=== PATIENT | male | born 1980 | race African-American/Black ===

== ENCOUNTER 2016-03-24 10:55 | Day surgery (SDC) | payer OTHER ==
[~2016-03-24] VITALS: Ht 172.7 cm; Wt 85.2 kg
[2016-03-24] VITALS (14 sets, daily range): BP systolic 117–146; BP diastolic 56–80; PULSE 69–90; RESP 15–20; Ht 172.7 cm; Wt 85.2 kg
[~2016-03-24 10:55] MED LIST: BUPIVACAINE 0.25% (MPF) 10 ML 10 ML VIAL INJ ONE; ONDA-43 PO
[2016-03-24] MEDS ORDERED: CEFAZOLIN 2 GM/50 ML (PMX) 50 ML IVPB ONE (11:00)
[2016-03-24] MEDS ORDERED: SOD CHLORIDE 0.9% 1,000 ML IV ONE (11:00)
[2016-03-24] MEDS ORDERED: ROCURONIUM 50 MG INJ ONE (13:45)
[2016-03-24] MEDS ORDERED: NEOSTIGMINE 3 MG/3 ML SYRINGE ONE ×2 (13:45→14:22)
[2016-03-24] MEDS ORDERED: LIDOCAINE 2% (SDV) 5 ML INJ ONE (13:45)
[2016-03-24] MEDS ORDERED: PROPOFOL 20 ML ONE (13:45)
[2016-03-24] MEDS ORDERED: SUCCINYLCHOLINE CHLORIDE 100 MG/5 ML SYG IV ONE (13:45)
[2016-03-24] MEDS ORDERED: GLYCOPYRROLATE 0.4 MG INJ ONE ×2 (13:45→14:22)
[2016-03-24] MEDS ORDERED: MEPERIDINE 100 MG INJ ONE (13:46)
[2016-03-24] MEDS ORDERED: CEFAZOLIN 1 GM INJ ONE (13:49)
[2016-03-24] MEDS ORDERED: ONDANSETRON 4 MG INJ ONE (13:50)
[2016-03-24] MEDS ORDERED: BUPIVACAINE 0.25% (MPF) 10 ML 10 ML VIAL ONE (13:51)
[2016-03-24 13:56] LABS: INR 0.99; PROTIME 13.1 Sec (12.2-14.2)
[2016-03-24 13:57] LABS: PARTIAL THROMBOPLASTIN TIME 32.7 Sec (25.0-35.0)
[2016-03-24] MEDS ORDERED: HYDROCODONE/APAP (5/325) TAB PO ONE (15:00)
[2016-03-24] MEDS: HYDROmorphONE (0.2 MG/ML) 10ML SYG IV PRN ×3 (15:28→15:58)
--- NOTE | 2016-03-24 15:29 | OPR ---
DATE OF OPERATION: 03/24/2016 INDICATION: This is a 35-year-old male with large hemorrhoids. He requests surgical excision. Ris ks, alternatives, benefits, and personnel were discussed with patient. Patient expressed understand ing and consents to the operation. PREOPERATIVE DIAGNOSIS: Hemorrhoids. POSTOPERATIVE DIAGNOSIS: Hemorrhoids. OPERATIONS PERFORMED: 1. Internal and external complex hemorrhoidectomy x2. 2. Rigid proctoscopy. SURGEON: Neville Bowers MD ESTIMATED BLOOD LOSS: 20 mL SPECIMENS: Right anterior and left lateral hemorrhoidal columns. COMPLICATIONS: None. ANESTHESIA: General. PROCEDURE: The patient was taken to the OR, prepped and draped in the usual sterile fashion. Surgi reece timeout was performed. IV antibiotics were given. Rigid proctoscopy was performed. No evidenc e of any masses or lesions. Attention was paid to the left lateral column. A [id number] 3-0 V icryl suture was placed into the left lateral internal hemorrhoidal artery. The internal and electrical cad technician al hemorrhoidal complex was excised with a 15 blade and handheld LigaSure. The right anterior hemor rhoidal complex was addressed in a similar fashion with [id number] 3-0 Vicryl suture into the r ight anterior hemorrhoidal artery. The internal and external hemorrhoid was excised using a 15 blad e and handheld LigaSure. Hemostasis was established. Local anesthesia was injected. Dry dressings were applied. Dictated By: NEVILLE CANTRELL/SIMRAN Conf#: [id number] DID#: [id number]
[2016-03-24] MEDS ORDERED: DIPHENHYDRAMINE 50 MG INJ IV PRN (15:30)
[2016-03-24] MEDS ORDERED: FENTAnyl 50 MCG/ML VIAL IV PRN ×2 (15:30)
[2016-03-24] MEDS ORDERED: EPHEDrine SULFATE 50 MG/5 ML SYG IV PRN (15:30)
[2016-03-24] MEDS ORDERED: MEPERIDINE 25 MG INJ IV PRN (15:30)
[2016-03-24] MEDS ORDERED: HYDROmorphONE (0.2 MG/ML) 10ML SYG IV PRN (15:30)
[2016-03-24] MEDS ORDERED: hydrALAzine 20 MG INJ IV PRN (15:30)
[2016-03-24] MEDS ORDERED: ONDANSETRON 4 MG INJ IV PRN (15:30)
[2016-03-24] MEDS ORDERED: METOCLOPRAMIDE 10 MG INJ IV PRN (15:30)
[2016-03-24] MEDS ORDERED: MIDAZOLAM 1 MG/ML 2 ML INJ IV PRN (15:30)
[2016-03-24] MEDS ORDERED: morphine (1 MG/ML) 10ML SYRINGE IV PRN (15:30)
[2016-03-24] MEDS ORDERED: LABETALOL HCL 20MG INJ IV PRN (15:30)
[2016-03-24] MEDS: morphine (1 MG/ML) 10ML SYRINGE IV PRN ×2 (15:58→16:16)
== END 2016-03-24 18:50 | disposition home or self-care (01) ==
LOC: SDS 10:55
PROVIDERS: ATTEND Surgery
DX: K64.4 Residual hemorrhoidal skin tags (principal); K64.8 Other hemorrhoids
CPT/HCPCS: 46260; 85610; 85730; 88304; J0330; J0690; J1170; J2175; J2270; J2405; J2710; Z7512; Z7610; A4310; J3010

== ENCOUNTER 2016-03-27 16:20 | Inpatient (IN) | payer OTHER ==
[~2016-03-27] VITALS: Ht 172.7 cm; Wt 84.9 kg
[~2016-03-27 16:20] MED LIST changes: -BUPIVACAINE 0.25% (MPF) 10 ML 10 ML VIAL INJ ONE
[2016-03-27] MEDS ORDERED: SOD CHLORIDE 0.9% 1,000 ML IV STA (18:25)
[2016-03-27] MEDS ORDERED: KETOROLAC 15 MG INJ IV STA (18:51)
[2016-03-27] MEDS ORDERED: OXYCODONE/ACETAMINOPHEN (5/325) TAB PO ONE (19:00)
[2016-03-27 19:50] LABS: ADD SCAN DIFF NO
[2016-03-27 19:58] LABS: BASOPHILS % 0.1 % (0.0-2.0); EOSINOPHILS # 0.1 10^3/ul (0.0-0.5); EOSINOPHILS % 0.9 % (0.0-7.0); HEMATOCRIT 45.9 % (42.0-52.0); HEMOGLOBIN 15.5 g/dl (14.0-18.0); LYMPHOCYTES # 1.7 10^3/ul (0.8-2.9); LYMPHOCYTES % 12.4 % (15.0-51.0); MEAN CORPUSCULAR HEMOGLOBIN 24.9 pg (29.0-33.0); MEAN CORPUSCULAR HGB CONC 33.8 g/dl (32.0-37.0); MEAN CORPUSCULAR VOLUME 73.7 fl (82.0-101.0); MEAN PLATELET VOLUME 10.8 fl (7.4-10.4); MONOCYTE # 1.1 10^3/ul (0.3-0.9); MONOCYTES % 8.3 % (0.0-11.0); NEUTROPHIL # 10.5 10^3/ul (1.6-7.5); NEUTROPHILS % 78.1 % (39.0-77.0); PLATELET COUNT 243 10^3/UL (140-415); RED BLOOD COUNT 6.23 10^6/ul (4.70-6.10); RED CELL DISTRIBUTION WIDTH 14.8 % (11.5-14.5); WHITE BLOOD COUNT 13.4 10^3/ul (4.8-10.8)
[2016-03-27] MEDS ORDERED: ACETAMINOPHEN 500 MG TAB PO STA (19:58)
[2016-03-27 20:03] LABS: ALBUMIN 4.7 g/dl (3.3-4.9)
[2016-03-27 20:04] LABS: CHLORIDE 97 mmol/L (97-110); INR 0.96; POTASSIUM 3.8 mmol/L (3.5-5.1); PROTIME 12.8 Sec (12.2-14.2); SODIUM 142 mmol/L (135-144)
[2016-03-27 20:06] LABS: BILIRUBIN,INDIRECT 1.4 mg/dl (0-1.1); BILIRUBIN,TOTAL 1.4 mg/dl (0.2-1.3); CREATININE 1.17 mg/dl (0.61-1.24)
[2016-03-27 20:07] LABS: ALANINE AMINOTRANSFERASE 51 IU/L (13-69); ALKALINE PHOSPHATASE 124 IU/L (42-121); ANION GAP 18 (8-16); ASPARTATE AMINO TRANSFERASE 38 IU/L (15-46); BLOOD UREA NITROGEN 12 mg/dl (7-20); CALCIUM 9.9 mg/dl (8.4-10.2); CARBON DIOXIDE 31 mmol/L (21-31); GLUCOSE 100 mg/dl (70-220); TOTAL PROTEIN 8.3 g/dl (6.1-8.1)
[2016-03-27 20:10] LABS: URINE BILIRUBIN (Dip) 1+ (NEGATIVE); URINE BLOOD (Dip) NEGATIVE (NEGATIVE); URINE COLOR YELLOW (YELLOW); URINE GLUCOSE (Dip) NEGATIVE (NEGATIVE); URINE KETONES (Dip) 40 (NEGATIVE); URINE LEUKOCYTE ESTERASE (Dip) NEGATIVE (NEGATIVE); URINE NITRITE (Dip) NEGATIVE (NEGATIVE); URINE UROBILINOGEN (Dip) 1.0 E.U./dL (0.1-1.0)
[2016-03-27 20:26] LABS: TROPONIN-I < 0.012 ng/ml (0.00-0.12)
[2016-03-27 20:34] LABS: ADD UMIC NO; URINE TOTAL PROTEIN (Dip) NEGATIVE (NEGATIVE)
[2016-03-27 20:35] LABS: ICTOTEST NEGATIVE (NEGATIVE)
[2016-03-27] MEDS ORDERED: HYDROmorphONE 1 MG/ML SYG IV STA (20:35)
--- NOTE | 2016-03-27 20:52 | ERA ---
ER Documentation Chief Complaint Date/Time DATE: 03/27/16 TIME: 20:45 Chief Complaint Complains of no bm S/P HPI 35-year-old man complains of abdominal pain and distention and has had no bowel movements 5 days post hemorrhoidectomy. Patient denies blood per rectum or melena, he has had no fevers or chills, no chest pain or shortness of breath. His surgeon Dr. Bowers recommended admission for disimpaction. Patient denies vomiting, no chest pain or shortness of breath ROS All systems reviewed and are negative except as per history of present illness. Medications Home Meds Discontinued Scripts Ondansetron Hcl* (Zofran*) 4 Mg Tab, 4 MG PO Q6H Y for NAUSEA AND OR VOMITING, # 20 TAB Prov:AISHA SAUL S. 04/05/14 Allergies Allergies: Coded Allergies: No Known Allergy (Unverified , 03/27/16) PMhx/Soc Status post hemorrhoidectomy History of Surgery: Yes Anesthesia Reaction: No Hx Neurological Disorder: No Hx Respiratory Disorders: No Hx Cardiac Disorders: Yes (OPEN HEART SX PREMIE) Hx Psychiatric Problems: No Hx Miscellaneous Medical Probl: No Hx Alcohol Use: No Hx Substance Use: No Hx Tobacco Use: No Smoking Status: Unknown if ever smoked FmHx Family History: No diabetes Physical Exam Vitals Vital Signs Date Time Temp Pulse Resp B/P Pulse Ox O2 Delivery O2 Flow Rate FiO2 03/27/16 16:25 98.8 106 20 138/84 97 Physical Exam GENERAL: Well-developed, well-nourished, well-hydrated, in moderate discomfort. HEENT: Moist mucous membranes, pink conjunctiva, no cervical spine tenderness or step-off deformities, no goiter, no jaundice or icterus, extraocular movements intact without pain. No submandibular induration, and no pharyngeal erythema NEURO: Alert and oriented 3, cranial nerves II through XII intact bilaterally, pupils equal round reactive to light, no focal deficits or facial asymmetry, sensation intact distally Strength 5/5 in upper and lower extremities bilaterally CARDIAC: Regular rate and rhythm, no murmurs rubs or gallops LUNGS: Clear bilaterally no wheezing crackles or stridor ABDOMEN: Soft protuberant abdomen appears distended, no guarding or rigidity, no rebound. SKIN: Warm and dry to touch, no abrasions, contusions, or hematomas, no lacerations, no ecchymosis, no target lesions, and without ulcers EXTREMITIES: No clubbing cyanosis or edema, calves are bilaterally symmetrical, no Homans sign, no popliteal cord sign. Distal pulses equal and bilateral PSYCH: Normal affect without agitation or irritability Result Diagram: 03/27/164 03/27/164 Results 24 hrs Laboratory Tests Test 03/27/16 18:44 03/27/16 19:00 Alanine Aminotransferase (ALT/SGPT) 51IU/L Albumin 4.7g/dl Albumin/Globulin Ratio 1.30 Alkaline Phosphatase 124IU/L Anion Gap 18 Aspartate Amino Transf (AST/SGOT) 38IU/L Basophils # 0.010^3/ul Basophils % 0.1% Blood Urea Nitrogen 12mg/dl Calcium Level 9.9mg/dl Carbon Dioxide Level 31mmol/L Chloride Level 97mmol/L Creatinine 1.17mg/dl Direct Bilirubin 0.00mg/dl Eosinophils # 0.110^3/ul Eosinophils % 0.9% Globulin 3.60g/dl Glucose Level 100mg/dl Hematocrit 45.9% Hemoglobin 15.5g/dl INR International Normalized Ratio 0.96 Indirect Bilirubin 1.4mg/dl Lipase 18U/L Lymphocytes # 1.710^3/ul Lymphocytes % 12.4% Mean Corpuscular Hemoglobin 24.9pg Mean Corpuscular Hemoglobin Concent 33.8g/dl Mean Corpuscular Volume 73.7fl Mean Platelet Volume 10.8fl Monocytes # 1.110^3/ul Monocytes % 8.3% Neutrophils # 10.510^3/ul Neutrophils % 78.1% Nucleated Red Blood Cells # 0.010^3/ul Nucleated Red Blood Cells % 0.0/100WBC Platelet Count 16674^3/UL Potassium Level 3.8mmol/L Prothrombin Time 12.8Sec Prothrombin Time Ratio 1.0 Red Blood Count 6.2310^6/ul Red Cell Distribution Width 14.8% Sodium Level 142mmol/L Total Bilirubin 1.4mg/dl Total Protein 8.3g/dl Troponin I < 0.012ng/ml White Blood Count 13.410^3/ul Urine Bilirubin 1+ Urine Clarity CLEAR Urine Color YELLOW Urine Glucose NEGATIVE% Urine Hemoglobin NEGATIVE Urine Ictotest NEGATIVE Urine Ketones 40 Urine Leukocyte Esterase NEGATIVE Urine Nitrite NEGATIVE Urine Specific C[place]horn >=1.030 Urine Total Protein NEGATIVE Urine Urobilinogen 1.0 E.U./dL Urine pH 5.0 Current Medications Medications (Trade) Dose Ordered Sig/Maria Elena Route PRN Reason Start Time Stop Time Status Last Admin Dose Admin Sodium Chloride (NS) 1,000 ml @ 1,000 mls/hr Q1H STAT IV 03/27/16 18:25 03/27/16 19:24 DC 03/27/16 18:49 Ketorolac Tromethamine (Toradol) 15 mg ONCE STAT IV 03/27/16 18:51 03/27/16 18:53 DC 03/27/16 18:59 Oxycodone/ Acetaminophen (Percocet (5/ 325)) 1 tab ONCE ONCE PO 03/27/16 19:00 03/27/16 19:01 DC 03/27/16 19:00 Acetaminophen (Tylenol Tab) 1,000 mg ONCE STAT PO 03/27/16 19:58 03/27/16 19:59 DC 03/27/16 20:03 Hydromorphone HCl (Dilaudid) 1 mg ONCE STAT IV 03/27/16 20:35 03/27/16 20:36 DC 03/27/16 21:06 Procedures/MDM IV line was established patient was placed on pack master rhythm strip revealed a sinus rhythm at about 80 bpm with upright P and T waves. Patient was afebrile. I administered 1 L normal saline intravenously, and Toradol 15 mg IV for pain control, for continued pain he received acetaminophen 1 g p.o. Patient had continued pain despite medications were administered hydromorphone 1 mg IV. EKG performed, read by me: 80 bpm, normal sinus rhythm, normal axis, no acute ST segment changes, narrow QRS complex, with good R-wave progression in precordial leads. CBC reveals leukocytosis of 13, and electrolytes were unremarkable, liver function tests were normal, troponin was negative, coagulation profile was normal. Urine analysis was negative for infection Patient to be kept n.p.o. at midnight CT scan of the abdomen and pelvis was performed revealing some inflammatory changes in the perineum including subcutaneous air, there is also air-fluid distention in the distal colon and rectum. There is also distal obstruction noted. Please refer to radiologist dictation for full report. I administered Zosyn 3.375 g IV 1. Patient will be admitted to Dr. Chavez, Dr. Bowers was also spoken to. Departure Diagnosis: Primary Impression: Obstipation Additional Impression: Intractable abdominal pain Condition: ASHANTI Elias MD Mar 27, 2016 20:52
--- NOTE | 2016-03-27 22:18 | RADRPT ---
PROCEDURE: CT Abdomen and Pelvis without contrast CLINICAL INDICATION: Possible bowel obstruction TECHNIQUE: Transaxial images were obtained through the abdomen and pelvis on a multi-slice scanner without the intravenous contrast administration. No oral contrast had previously been given. Sagit irasema and coronal re-formations were subsequently reconstructed. One or more of the following dose reduction techniques were used: - Automated exposure control. - Adjustment of the mA and/or kV according to patient size. - Use of iterative reconstruction technique. Radiation dose: CTDIvol = 12.16 mGy; DLP = 673.93 mGy-cm. COMPARISON: Comparison the post contrast CT done 04/01/2014 FINDINGS: Lung bases: The visualized lung bases appear unremarkable. Liver: Normal in size and in attenuation. There is no focal lesion. Gallbladder: Surgical kasey are seen in the gallbladder fossa. Bile ducts: The intrahepatic bile ducts are mildly prominent. The common bile duct is mildly dilate d at 7.4 mm at the head of the pancreas. No choledocholithiasis identified Pancreas: Appears normal with no mass or inflammation evident. Spleen: Normal in size with no focal lesion. Adrenals: Normal with no mass identified. Kidneys, ureters and bladder: The kidneys are normal in size and there is no mass, pathological calc ification, or hydronephrosis evident. There is no perinephric stranding. The ureters are normal in c aliber and no ureteroliths are identified. A Rob catheter is seen within a nondistended bladder. Reproductive organs: The prostate is not enlarged. Stomach and bowel: The stomach appears unremarkable. The proximal small bowel is thin in caliber. There is fluid distension of the ilium and the colon is diffusely dilated with air and fluid with th e lumen measuring up to 6.3 cm in diameter. There appears to be intramural air within the rectum. Appendix: There appears to been a previous appendectomy. Peritoneum: Extraperitoneal interstitial air is seen to the perineum and continues inferiorly into t he scrotum. Inflammation extends to the skin surface but no discrete abscess is evident. Aorta: Normal in caliber with no aneurysmal dilatation. IVC: The inferior vena cava is flattened. This can be seen in hypovolemia. Lymph nodes: No pathologically enlarged nodes are identified. Osseous structures: The osseous elements appear intact. IMPRESSION: 1. Since the previous CT with contrast on 04/01/2014, there has been development of a intramedullar y air within the rectum and extensive extraperitoneal air seen to the perineum with inflammation ext ending to the skin surface. Interstitial air continues inferiorly into the scrotum. 2. There is air and fluid distension of the entire colon as well as the ileum with the more proxima l small bowel small in caliber. A distal obstruction at the anus cannot be excluded. The stomach ruthann ears unremarkable. A clip is seen off the cecum is suggestive of previous appendectomy, unchanged. 3. There is again no evidence of urinary outflow obstruction or ureterolithiasis. A Rob catheter is now seen in a poorly distended bladder. 4. There is been interval cholecystectomy, there is less intrahepatic bile duct dilatation but the common bile duct remains prominent at 7.4 mm to the head of the pancreas. The pancreas appears unre markable. Findings of intramural air within the rectum extending interstitially through the perineum and into the scrotum associated with air and fluid distension of ileum and the entire colon were telephoned b grant Martin MD to Dr. Samano on 03/27/2016 at 2210 hours. Physician Ciara Date Time Electronically viewed and signed by Physician Ciara on 03/27/2016 22:18 /
[2016-03-27] MEDS ORDERED: PIPER-TAZO 3.375 GM IV (PMX) 100 ML IVPB ONE (22:30)
[2016-03-27 22:32] VITALS: BP 140/72; RESP 19
[2016-03-27] MEDS: SOD CHLORIDE 0.9% 1,000 ML IV SCH (22:38)
[2016-03-27] MEDS: HYDROmorphONE 1 MG/ML SYG IV PRN (22:39)
[2016-03-27 23:01] VITALS: Ht 172.7 cm; Wt 84.9 kg
[2016-03-28] VITALS (17 sets, daily range): BP systolic 124–145; BP diastolic 64–76; PULSE 62–80; RESP 14–19
[2016-03-28] MEDS: ACETAMINOPHEN 1000MG/100ML IV 100 ML IVPB SCH ×5 (00:08→23:04)
[2016-03-28] MEDS: LORAZEPAM 2 MG INJ IV PRN ×3 (01:43→14:51)
[2016-03-28] MEDS: HYDROmorphONE 1 MG/ML SYG IV PRN ×4 (03:18→16:07)
[2016-03-28] MEDS: HYDROCORTISONE 1% 28 GM CR TOP PRN (05:15)
[2016-03-28 05:56] LABS: ADD SCAN DIFF NO
[2016-03-28 05:59] LABS: BASOPHILS % 0.1 % (0.0-2.0); EOSINOPHILS # 0.1 10^3/ul (0.0-0.5); EOSINOPHILS % 0.9 % (0.0-7.0); HEMATOCRIT 40.9 % (42.0-52.0); HEMOGLOBIN 13.8 g/dl (14.0-18.0); LYMPHOCYTES # 1.5 10^3/ul (0.8-2.9); LYMPHOCYTES % 9.3 % (15.0-51.0); MEAN CORPUSCULAR HGB CONC 33.7 g/dl (32.0-37.0); MEAN CORPUSCULAR VOLUME 74.2 fl (82.0-101.0); MEAN PLATELET VOLUME 10.3 fl (7.4-10.4); MONOCYTE # 1.5 10^3/ul (0.3-0.9); MONOCYTES % 9.3 % (0.0-11.0); NEUTROPHIL # 12.5 10^3/ul (1.6-7.5); PLATELET COUNT 200 10^3/UL (140-415); RED BLOOD COUNT 5.51 10^6/ul (4.70-6.10); RED CELL DISTRIBUTION WIDTH 14.4 % (11.5-14.5); WHITE BLOOD COUNT 15.6 10^3/ul (4.8-10.8)
[2016-03-28 06:30] LABS: POTASSIUM 4.1 mmol/L (3.5-5.1)
[2016-03-28 06:33] LABS: CREATININE 1.07 mg/dl (0.61-1.24)
[2016-03-28 06:34] LABS: CALCIUM 9.1 mg/dl (8.4-10.2)
[2016-03-28] MEDS: SOD CHLORIDE 0.9% 1,000 ML IV SCH ×2 (09:15→17:22)
--- NOTE | 2016-03-28 10:32 | CONS ---
DATE OF ADMISSION: 03/27/2016 DATE OF CONSULTATION: 03/28/2016 INDICATION: This is a 35-year-old male who underwent a recent hemorrhoidectomy. He has not been ab le to have any bowel movements. He had some distention and requests evaluation. Upon evaluation, i t appears that he has some probable fecal impaction. The patient will be taken to the OR for manual fecal disimpaction. REVIEW OF SYSTEMS: All other systems were reviewed and negative, except for described as above. MEDICATIONS: Zofran. ALLERGIES: NO KNOWN DRUG ALLERGIES. PAST MEDICAL HISTORY: Status post hemorrhoidectomy. No other issues, except for open heart surgery as a preemie. FAMILY HISTORY: Noncontributory. PHYSICAL EXAMINATION: GENERAL: Well-developed, well-nourished. HEENT: PERRLA. NEUROLOGIC: Intact, alert and oriented. CARDIAC: Regular rate and rhythm. ABDOMEN: Soft. Mild distention. There are no peritoneal signs. No rebound tenderness. ASSESSMENT AND PLAN: This is a 35-year-old male who underwent a hemorrhoidectomy, with probable fecal impaction. He will need examination under anesthesia, disimpaction and possibly anal dilatation. Dictated By: SOPHY CANTRELL/SIMRAN Conf#: [id number] DID#: [id number]
[2016-03-28] MEDS ORDERED: BISACODYL (EC) 5 MG TAB PO PRN (14:30)
[2016-03-28] MEDS ORDERED: ONDANSETRON 4 MG INJ IV PRN ×2 (14:30→18:30)
[2016-03-28] MEDS ORDERED: NACL 0.9% 3 ML SYG IV SCH (14:30)
[2016-03-28] MEDS ORDERED: DOCUSATE SODIUM 100 MG CAP PO PRN (14:30)
--- NOTE | 2016-03-28 15:17 | HP ---
DATE OF ADMISSION: 03/27/2016 MANAGER BUSINESS SYSTEMS: Neville Bowers MD, general surgery. CHIEF COMPLAINT: Abdominal pain, constipation. HISTORY OF PRESENT ILLNESS: This is a 35-year-old gentleman with past medical history of prematurit y at 7 months, choledocholithiasis status post ERCP on 04/03/2014, chronic constipation, and history of large hemorrhoids status post internal and external complex hemorrhoidectomy x2 and rigid procto scopy on 03/24/[address] Neville Bowers. The patient was discharged home in stable condition, although he has been complaining of having abdominal pain, constipation since then. He presents to [facility] Emergency Room complaining of having abdominal pain, distention and no bowel movement x5 days, status post hemorrhoidectomy. The patient denies any blood per rectum, melena. Denies any f ever, chills, weight gain, weight loss. No chest pain, shortness of breath. Dr. Bowers was consulted from course of the emergency room and he recommended admission for impaction. The patient has been admitted to medical/surgical and has been started on IV fluid, pain medication, antianxiety medication. At this time, he denies having any chest pain, shortness of breath, nausea , vomiting or diarrhea. No headache, dizziness, lightheadedness. No change in visual acuity, diplo elisa, photophobia. No heat and cold intolerance. No recent travel history. No sick contact. Posit khari for abdominal discomfort, distention and pain. PAST MEDICAL AND SURGICAL HISTORY: As above per HPI. MEDICATIONS: Colace 100 mg 1 tab p.o. daily. ALLERGIES: NO KNOWN DRUG ALLERGIES. FAMILY HISTORY: Noncontributory. SOCIAL HISTORY: Negative for smoking. No alcohol, no illicit drugs. He lives at home. REVIEW OF SYSTEMS: As above per HPI, otherwise 12 review of systems has been found to be negative. PHYSICAL EXAMINATION: VITAL SIGNS: Temperature 98.9, pulse 93, respirations 18, blood pressure 125/66, oxygen saturation 100% in room air. GENERAL APPEARANCE: The patient is lying in bed comfortably without any distress. He is awake, al ert, oriented. He is able to answer my questions properly. EYES AND ENT: Conjunctivae and lids are normal. Pupils are normal. Extraocular normal. Hearing g rossly normal. Lips and gums are normal. Oral mucosa mildly dry. NECK: Supple. Trachea midline. No lymphadenopathy. RESPIRATORY: Effort is normal. Clear to auscultation bilaterally. CARDIOVASCULAR: Normal S1, S2. Regular rhythm and rate. No murmur, no bruits, no edema. Peripher al pulses, radial pulses palpable. Capillary refill is normal. CHEST: Normal expansion of thorax during inspiration. GASTROINTESTINAL: Abdomen is distended, soft, tender in lower quadrant. Bowel sounds are present. No guarding, no rebound. GENITOURINARY: Deferred. MUSCULOSKELETAL: Upper and lower extremities within normal limits. Full range of motion. NEUROLOGIC: Cranial nerves II through XII are grossly intact. PSYCHIATRIC: Normal judgment and insight. Alert and oriented x3. Mood and affect are normal. LABORATORY WORK AND IMAGING: WBC 13.4, hemoglobin 15.5, hematocrit 45.6, platelets 243. Neutrophil percentage 78.1. Sodium 142, potassium 3.8, chloride 97, bicarbonate 31, BUN 12, creatinine 1.17, glucose 100, calcium 9.9. Total bilirubin 1.4, direct bilirubin is 0, indirect bilirubin 1.4, AST 3 8, ALT 51, alkaline phosphatase 124. Lipase 18. ASSESSMENT AND PLAN: 1. Abdominal pain with distention, status post hemorrhoidectomy. Dr. Bowers has been consulted. The patient has been admitted for fecal impaction and anal dilation. The patient has been started on IV fluid, made n.p.o., pain medication. We will also start the patient on IV antibiotics. 2. Leukocytosis, likely postoperatively. Place patient on ciprofloxacin and Flagyl. 3. For deep venous thrombosis prophylaxis, on sequential compression devices. 4. For gastrointestinal prophylaxis, on proton pump inhibitor. 5. We will continue to monitor the patient closely. Further recommendations, management and treatm ent as per clinical course. Total amount of time spent for evaluation of patient and admission workup 40 minutes. Dictated By: OBED LOPEZ/SIMRAN Conf#: [id number] DID#: [id number]
[2016-03-28] MEDS: CIPROFLOXACIN 400MG/D5W 200 ML IVPB SCH ×2 (15:30→21:09)
[2016-03-28] MEDS: metroNIDAZOLE 500 MG/NS (PMX) 100 ML IVPB SCH (15:51)
[2016-03-28] MEDS ORDERED: ACETAMINOPHEN 1000MG/100ML IV 100 ML IVPB ONE (17:30)
[2016-03-28] MEDS ORDERED: GLYCOPYRROLATE 0.4 MG INJ ONE ×2 (18:14→18:59)
[2016-03-28] MEDS ORDERED: NEOSTIGMINE 3 MG/3 ML SYRINGE ONE ×2 (18:14→18:59)
[2016-03-28] MEDS ORDERED: PROPOFOL 20 ML ONE (18:14)
[2016-03-28] MEDS ORDERED: LIDOCAINE 2% (SDV) 5 ML INJ ONE (18:14)
[2016-03-28] MEDS ORDERED: SUCCINYLCHOLINE CHLORIDE 100 MG/5 ML SYG IV ONE (18:14)
[2016-03-28] MEDS ORDERED: MEPERIDINE 100 MG INJ ONE (18:14)
[2016-03-28] MEDS ORDERED: ROCURONIUM 50 MG INJ ONE (18:14)
[2016-03-28] MEDS ORDERED: MIDAZOLAM 1 MG/ML 2 ML INJ IV PRN (18:30)
[2016-03-28] MEDS ORDERED: DIPHENHYDRAMINE 50 MG INJ IV PRN (18:30)
[2016-03-28] MEDS ORDERED: MEPERIDINE 25 MG INJ IV PRN (18:30)
[2016-03-28] MEDS ORDERED: METOCLOPRAMIDE 10 MG INJ IV PRN (18:30)
[2016-03-28] MEDS ORDERED: morphine (1 MG/ML) 10ML SYRINGE IV PRN ×2 (18:30)
[2016-03-28] MEDS ORDERED: EPHEDrine SULFATE 50 MG/5 ML SYG IV PRN (18:30)
[2016-03-28] MEDS ORDERED: LABETALOL HCL 20MG INJ IV PRN (18:30)
[2016-03-28] MEDS ORDERED: HYDROmorphONE (0.2 MG/ML) 10ML SYG IV PRN ×2 (18:30)
[2016-03-28] MEDS ORDERED: FENTAnyl 50 MCG/ML VIAL IV PRN ×2 (18:30)
[2016-03-28] MEDS ORDERED: hydrALAzine 20 MG INJ IV PRN (18:30)
[2016-03-28] MEDS ORDERED: BUPIVACAINE 0.25% (MPF) 10 ML 10 ML VIAL INJ ONE (18:59)
[2016-03-28] MEDS ORDERED: CEFAZOLIN 1 GM INJ ONE (18:59)
[2016-03-28] MEDS ORDERED: SODIUM CL BACTERIOSTATIC 30 ML INJ ONE (19:02)
[2016-03-28] MEDS ORDERED: BUPIVACAINE 0.5% (SDV) 30 ML INJ ONE (19:02)
[2016-03-28] MEDS ORDERED: LACTATED RINGER'S 1,000 ML IV SCH (19:10)
[2016-03-28] MEDS ORDERED: ACETAMINOPHEN 325 MG TAB PO PRN (19:30)
[2016-03-28 19:56] LABS: ADD SCAN DIFF NO
[2016-03-28 19:58] LABS: BASOPHILS % 0.2 % (0.0-2.0); EOSINOPHILS # 0.1 10^3/ul (0.0-0.5); EOSINOPHILS % 0.9 % (0.0-7.0); HEMATOCRIT 38.7 % (42.0-52.0); HEMOGLOBIN 13.4 g/dl (14.0-18.0); LYMPHOCYTES # 1.8 10^3/ul (0.8-2.9); LYMPHOCYTES % 13.8 % (15.0-51.0); MEAN CORPUSCULAR HEMOGLOBIN 25.6 pg (29.0-33.0); MEAN CORPUSCULAR HGB CONC 34.6 g/dl (32.0-37.0); MEAN PLATELET VOLUME 10.1 fl (7.4-10.4); MONOCYTE # 1.1 10^3/ul (0.3-0.9); MONOCYTES % 8.7 % (0.0-11.0); NEUTROPHIL # 9.7 10^3/ul (1.6-7.5); NEUTROPHILS % 76.1 % (39.0-77.0); PLATELET COUNT 206 10^3/UL (140-415); RED BLOOD COUNT 5.23 10^6/ul (4.70-6.10); WHITE BLOOD COUNT 12.7 10^3/ul (4.8-10.8)
[2016-03-28] MEDS ORDERED: ACETAMINOPHEN 1000MG/100ML IV 100 ML IVPB SCH (20:00)
[2016-03-28] MEDS: CEFAZOLIN 2 GM/50 ML (PMX) 50 ML IVPB SCH (23:34)
[2016-03-29] VITALS (35 sets, daily range): BP systolic 99–127; BP diastolic 38–76; PULSE 93–146; RESP 13–16
[2016-03-29] MEDS: metroNIDAZOLE 500 MG/NS (PMX) 100 ML IVPB SCH ×4 (00:16→21:58)
[2016-03-29] MEDS: HYDROmorphONE 1 MG/ML SYG IV PRN (00:16)
[2016-03-29] MEDS: IBUPROFEN 600 MG TAB PO PRN ×2 (02:09→22:55)
[2016-03-29] MEDS: SOD CHLORIDE 0.9% 1,000 ML IV SCH ×3 (02:09→21:58)
[2016-03-29] MEDS: LORAZEPAM 2 MG INJ IV PRN (02:10)
[2016-03-29] MEDS: ACETAMINOPHEN 1000MG/100ML IV 100 ML IVPB SCH ×4 (05:07→23:21)
[2016-03-29] MEDS: PANTOPRAZOLE (EC) 40 MG TAB PO SCH (05:07)
[2016-03-29] MEDS: CEFAZOLIN 2 GM/50 ML (PMX) 50 ML IVPB SCH ×2 (05:32→15:30)
[2016-03-29 06:14] LABS: ADD SCAN DIFF NO
[2016-03-29 06:21] LABS: BASOPHILS % 0.2 % (0.0-2.0); EOSINOPHILS # 0.1 10^3/ul (0.0-0.5); HEMATOCRIT 31.4 % (42.0-52.0); HEMOGLOBIN 10.4 g/dl (14.0-18.0); LYMPHOCYTES # 1.6 10^3/ul (0.8-2.9); LYMPHOCYTES % 14.1 % (15.0-51.0); MEAN CORPUSCULAR HEMOGLOBIN 25.9 pg (29.0-33.0); MEAN CORPUSCULAR HGB CONC 33.2 g/dl (32.0-37.0); MEAN CORPUSCULAR VOLUME 77.9 fl (82.0-101.0); MEAN PLATELET VOLUME 8.5 fl (7.4-10.4); MONOCYTE # 1.2 10^3/ul (0.3-0.9); MONOCYTES % 10.8 % (0.0-11.0); NEUTROPHIL # 8.3 10^3/ul (1.6-7.5); NEUTROPHILS % 73.9 % (39.0-77.0); PLATELET COUNT 201 10^3/UL (140-440); RED BLOOD COUNT 4.03 10^6/ul (4.70-6.10); RED CELL DISTRIBUTION WIDTH 14.3 % (11.5-14.5); WHITE BLOOD COUNT 11.2 10^3/ul (4.8-10.8)
[2016-03-29 06:30] LABS: POTASSIUM 4.6 mmol/L (3.5-5.1)
[2016-03-29 06:32] LABS: CREATININE 0.92 mg/dl (0.61-1.24)
[2016-03-29 06:33] LABS: MAGNESIUM 2.1 mg/dl (1.7-2.5)
[2016-03-29 07:22] LABS: ALBUMIN 2.7 g/dl (3.3-4.9)
[2016-03-29 07:25] LABS: BILIRUBIN,INDIRECT 1.2 mg/dl (0-1.1); BILIRUBIN,TOTAL 1.2 mg/dl (0.2-1.3); TOTAL PROTEIN 5.1 g/dl (6.1-8.1)
--- NOTE | 2016-03-29 07:27 | OPR ---
DATE OF OPERATION: 03/28/2016 INDICATION: This is a 35-year-old male who presents with anal stenosis and he requests surgical rep air. The risks, alternatives, benefits, and personnel were discussed with the patient. The patient expressed understanding and consented to the operation. PREOPERATIVE DIAGNOSIS: Anal stenosis. POSTOPERATIVE DIAGNOSIS: Anal stenosis and fecal impaction. SURGEON: Neville Bowers MD OPERATION PERFORMED: Examination under anesthesia, anal dilation and fecal disimpaction. COMPLICATIONS: None. ANESTHESIA: General. DESCRIPTION OF PROCEDURE: The patient was taken to the OR and prepped and draped in the usual steri le fashion. A surgical timeout was performed. IV antibiotics were given. Examination under anesth esia showed some narrowing in the anus. Finger dilatation was used. was used for identificat ion of any areas of narrowing. This area was dilated. Additionally fecal disimpaction was performe d, cleaning out the rectum. There was good hemostasis. Local anesthesia was injected. Dry dressin gs were applied. Dictated By: NEVILLE CANTRELL/SIMRAN Conf#: [id number] DID#: [id number]
--- NOTE | 2016-03-29 08:32 | PN ---
Date/Time of Note Date/Time of Note DATE: 03/29/16 TIME: 08:22 Assessment/Plan VTE Prophylaxis VTE Prophylaxis Intervention: SCD's Lines/Catheters IV Catheter Type (from Nrs): Peripheral IV Urinary Cath still in place: Yes Reason Cath still needed: urinary retention Assessment/Plan Chief Complaint/Hosp Course ASSESSMENT AND PLAN: 1. Abdominal pain with distention, status post hemorrhoidectomy. Dr. Bowers has been consulted. Status post anal dilation and fecal disimpaction on 03/28/2016 . Continue IV fluid, pain medication, ciprofloxacin and Flagyl 2. Leukocytosis, likely postoperatively. Improving on ciprofloxacin and Flagyl. 3. Acute anemia, likely secondary to rectal bleed from hemorrhoids/blood loss anemia, type and screen and transfuse 2 units packed red blood cell, follow up hemoglobin hematocrit post transfusion 4. For deep venous thrombosis prophylaxis, on sequential compression devices. 5. For gastrointestinal prophylaxis, on proton pump inhibitor. Patient will be transferred to ICU for closer monitoring secondary to lower GI bleed We will continue to monitor the patient closely. Further recommendations, management and treatment as per clinical course. Problems: Subjective 24 Hr Interval Summary Free Text/Dictation At 7:30 AM this morning patient was feeling lightheaded although he did not notify any of the nurses and went to the restroom which he had a bowel movement and had a syncopal episode. ELLE PUGA was called and patient was found to be awake alert although dizzy. He has been able to respond to all questions properly and has been able to follow commands without any difficulty. Patient was found to be laying in a pool of blood ( ? 2-3 pints of blood) which he lost rectally. Patient did not have any chest pain or shortness of breath. He did not complain of having abdominal pain nausea or vomiting. With help of charge nurse and the nursing staff patient was taken back to his bed which at this time he is awake alert and oriented. Exam/Review of Systems Vital Signs Vitals Vital Signs Date Time Temp Pulse Resp B/P Pulse Ox O2 Delivery O2 Flow Rate FiO2 03/29/16 07:40 98.4 144 16 125/64 100 03/28/16 20:14 Nasal Cannula Intake and Output 03/28/16 03/28/16 03/29/16 15:00 23:00 07:00 Intake Total 100 ml 1200 ml 850 ml Output Total 10 ml 1000 ml Balance 100 ml 1190 ml -150 ml Exam General: The patient is well-developed, Not in acute distress. HEENT: Atraumatic, normocephalic. The pupils are equal and round . Neck: Supple with full range of motion. Chest: Normal expansion of the thorax during inspiration Lungs: Clear to auscultation bilaterally Heart: Normal S1-S2, Regular rhythm and rate. Abdomen: Soft , nontender, less distended , bowel sounds are present. Extremities: Normal to inspection, no edema no cyanosis Neurologic: Normal mental status,The patient is awake, alert and oriented . Genitourinary/rectum: Rob in place normal external genitalia, no active bleeding from rectal area Results Result Diagram: 03/29/16 0540 03/29/16 0540 Results 24 hrs Laboratory Tests Test 03/28/16 19:50 03/29/16 05:13 03/29/16 05:40 03/29/16 07:56 Basophils # 0.0 0.0 Basophils % 0.2 0.2 Eosinophils # 0.1 0.1 Eosinophils % 0.9 1.0 Hematocrit 38.7 L 31.4 L Hemoglobin 13.4 L 10.4 #L Lymphocytes # 1.8 1.6 Lymphocytes % 13.8 L 14.1 L Mean Corpuscular Hemoglobin 25.6 L 25.9 L Mean Corpuscular Hemoglobin Concent 34.6 33.2 Mean Corpuscular Volume 74.0 L 77.9 L Mean Platelet Volume 10.1 8.5 Monocytes # 1.1 H 1.2 H Monocytes % 8.7 10.8 Neutrophils # 9.7 H 8.3 H Neutrophils % 76.1 73.9 Nucleated Red Blood Cells # 0.0 0.0 Nucleated Red Blood Cells % 0.0 0.0 Platelet Count 206 201 Red Blood Count 5.23 4.03 #L Red Cell Distribution Width 14.0 14.3 White Blood Count 12.7 H 11.2 H Alanine Aminotransferase (ALT/SGPT) 44 Albumin 2.7 #L Alkaline Phosphatase 90 Aspartate Amino Transf (AST/SGOT) 39 Direct Bilirubin 0.00 Indirect Bilirubin 1.2 H Total Bilirubin 1.2 Total Protein 5.1 #L Anion Gap 11 # Blood Morphology Comment Blood Urea Nitrogen 18 Calcium Level 8.0 L Carbon Dioxide Level 27 Chloride Level 104 Creatinine 0.92 Glucose Level 107 Magnesium Level 2.1 Potassium Level 4.6 Sodium Level 137 Bedside Glucose 166 Medications Medications Current Medications Hydromorphone HCl (Dilaudid) 1 mg Q4H PRN IV PAIN Last administered on 00:16; Admin Dose 1 MG; Start 03/27/16 at 22:30 Lorazepam 1 mg 1 mg Q4H PRN IV ANXIETY Last administered on 03/29/16 02:10; Admin Dose 1 MG; Start 03/27/16 at 22:30 Sodium Chloride 1,000 ml @ 100 mls/hr Q10H IV Last administered on 03/29/16 02:09; Admin Dose 100 MLS/HR; Start 03/27/16 at 22:30 Acetaminophen (Ofirmev 1000mg/ 100ml Iv) 100 ml @ 400 mls/hr Q6H IVPB Last administered on 03/29/16 05:07; Admin Dose 400 MLS/HR; Start 03/28/16 at 00:00 Hydrocortisone (Hydrocortisone 1% Cr) 1 applic BID PRN TOP RECTAL BURNING Last administered on 03/28/16 05:15; Admin Dose 1 APPLIC; Start 03/28/16 at 05:00 Ondansetron HCl (Zofran Inj) 4 mg Q6H PRN IV NAUSEA AND/OR VOMITING; Start 12/02 at 14:30 Docusate Sodium (Colace) 100 mg Q12H PRN PO CONSTIPATION; Start 03/28/16 at 14: 30 Bisacodyl (Dulcolax) 5 mg DAILY PRN PO CONSTIPATION; Start 03/28/16 at 14:30 Pantoprazole 40 mg 40 mg DAILY@06 PO Last administered on 03/29/16 05:07; Admin Dose 40 MG; Start 03/29/16 at 06:00 Ciprofloxacin/ Dextrose 200 ml @ 200 mls/hr Q12 IVPB Last administered on 03/28 21:09; Admin Dose 200 MLS/HR; Start 03/28/16 at 15:30 Metronidazole 100 ml @ 100 mls/hr Q8 IVPB Last administered on 03/29/16 06:17 ; Admin Dose 100 MLS/HR; Start 03/28/16 at 15:30 Cefazolin Sodium/ Dextrose (Ancef 2 Gm/50 ml (Pmx)) 50 ml @ 100 mls/hr Q8 IVPB Last administered on 03/29/16 05:32; Admin Dose 100 MLS/HR; Start 03/28/16 at 22:00; Stop 03/29/16 at 14:29 Ibuprofen (Motrin) 600 mg Q6H PRN PO PAIN LEVEL 1-5 Last administered on 02:09; Admin Dose 600 MG; Start 03/28/16 at 19:30 OBED LOPEZ MD Mar 29, 2016 08:32
--- NOTE | 2016-03-29 09:30 | PN ---
Date/Time of Note Date/Time of Note DATE: 03/29/16 TIME: 09:28 Assessment/Plan VTE Prophylaxis VTE Prophylaxis Intervention: SCD's Lines/Catheters IV Catheter Type (from [facility]): Peripheral IV Urinary Cath still in place: Yes Reason Cath still needed: other (indicate) (in icu) Assessment/Plan Chief Complaint/Hosp Course s/p eua fecal disimpaction and anal dilation with episode of bleeding in first bowel movement Problems: Assessment/Plan continue icu monitoring for 24 hours Subjective 24 Hr Interval Summary Free Text/Dictation had episode of rectal bleeding with bowel movement, hgb above 10 with some component of hemodilution from fluids. Vitals always stable but transferred to ICU as precautionary measure. Exam/Review of Systems Vital Signs Vitals Vital Signs Date Time Temp Pulse Resp B/P Pulse Ox O2 Delivery O2 Flow Rate FiO2 03/29/16 07:40 98.4 144 16 125/64 100 03/28/16 20:14 Nasal Cannula Intake and Output 03/28/16 03/28/16 03/29/16 15:00 23:00 07:00 Intake Total 100 ml 1200 ml 850 ml Output Total 10 ml 1000 ml Balance 100 ml 1190 ml -150 ml Exam noncontributory Results Result Diagram: 03/29/16 0540 03/29/16 0540 Results 24 hrs Laboratory Tests Test 03/28/16 19:50 03/29/16 05:13 03/29/16 05:40 03/29/16 07:56 Basophils # 0.0 0.0 Basophils % 0.2 0.2 Eosinophils # 0.1 0.1 Eosinophils % 0.9 1.0 Hematocrit 38.7 L 31.4 L Hemoglobin 13.4 L 10.4 #L Lymphocytes # 1.8 1.6 Lymphocytes % 13.8 L 14.1 L Mean Corpuscular Hemoglobin 25.6 L 25.9 L Mean Corpuscular Hemoglobin Concent 34.6 33.2 Mean Corpuscular Volume 74.0 L 77.9 L Mean Platelet Volume 10.1 8.5 Monocytes # 1.1 H 1.2 H Monocytes % 8.7 10.8 Neutrophils # 9.7 H 8.3 H Neutrophils % 76.1 73.9 Nucleated Red Blood Cells # 0.0 0.0 Nucleated Red Blood Cells % 0.0 0.0 Platelet Count 206 201 Red Blood Count 5.23 4.03 #L Red Cell Distribution Width 14.0 14.3 White Blood Count 12.7 H 11.2 H Alanine Aminotransferase (ALT/SGPT) 44 Albumin 2.7 #L Alkaline Phosphatase 90 Aspartate Amino Transf (AST/SGOT) 39 Direct Bilirubin 0.00 Indirect Bilirubin 1.2 H Total Bilirubin 1.2 Total Protein 5.1 #L Anion Gap 11 # Blood Morphology Comment Blood Urea Nitrogen 18 Calcium Level 8.0 L Carbon Dioxide Level 27 Chloride Level 104 Creatinine 0.92 Glucose Level 107 Magnesium Level 2.1 Potassium Level 4.6 Sodium Level 137 Bedside Glucose 166 Medications Medications Current Medications Hydromorphone HCl (Dilaudid) 1 mg Q4H PRN IV PAIN Last administered on 00:16; Admin Dose 1 MG; Start 03/27/16 at 22:30 Lorazepam 1 mg 1 mg Q4H PRN IV ANXIETY Last administered on 03/29/16 02:10; Admin Dose 1 MG; Start 03/27/16 at 22:30 Sodium Chloride 1,000 ml @ 100 mls/hr Q10H IV Last administered on 03/29/16 02:09; Admin Dose 100 MLS/HR; Start 03/27/16 at 22:30 Acetaminophen (Ofirmev 1000mg/ 100ml Iv) 100 ml @ 400 mls/hr Q6H IVPB Last administered on 03/29/16 05:07; Admin Dose 400 MLS/HR; Start 03/28/16 at 00:00 Hydrocortisone (Hydrocortisone 1% Cr) 1 applic BID PRN TOP RECTAL BURNING Last administered on 03/28/16 05:15; Admin Dose 1 APPLIC; Start 03/28/16 at 05:00 Ondansetron HCl (Zofran Inj) 4 mg Q6H PRN IV NAUSEA AND/OR VOMITING; Start 12/02 at 14:30 Docusate Sodium (Colace) 100 mg Q12H PRN PO CONSTIPATION; Start 03/28/16 at 14: 30 Bisacodyl (Dulcolax) 5 mg DAILY PRN PO CONSTIPATION; Start 03/28/16 at 14:30 Pantoprazole 40 mg 40 mg DAILY@06 PO Last administered on 03/29/16 05:07; Admin Dose 40 MG; Start 03/29/16 at 06:00 Ciprofloxacin/ Dextrose 200 ml @ 200 mls/hr Q12 IVPB Last administered on 03/28 21:09; Admin Dose 200 MLS/HR; Start 03/28/16 at 15:30 Metronidazole 100 ml @ 100 mls/hr Q8 IVPB Last administered on 03/29/16 06:17 ; Admin Dose 100 MLS/HR; Start 03/28/16 at 15:30 Cefazolin Sodium/ Dextrose (Ancef 2 Gm/50 ml (Pmx)) 50 ml @ 100 mls/hr Q8 IVPB Last administered on 03/29/16 05:32; Admin Dose 100 MLS/HR; Start 03/28/16 at 22:00; Stop 03/29/16 at 14:29 Ibuprofen (Motrin) 600 mg Q6H PRN PO PAIN LEVEL 1-5 Last administered on 02:09; Admin Dose 600 MG; Start 03/28/16 at 19:30 Keaton PIZANO Mar 29, 2016 09:30
[2016-03-29] MEDS: CIPROFLOXACIN 400MG/D5W 200 ML IVPB SCH ×2 (09:38→20:35)
[2016-03-29 17:03] LABS: HEMOGLOBIN 7.8 g/dl (14.0-18.0)
[2016-03-29] MEDS: morphine 2 MG INJ IV PRN (20:58)
[2016-03-29] MEDS ORDERED: ZOLPIDEM 5 MG TAB PO PRN (21:00)
[2016-03-29] MEDS: HYDROCORTISONE 1% 28 GM CR TOP PRN (21:19)
[2016-03-30] VITALS (44 sets, daily range): BP systolic 64–131; BP diastolic 46–98; PULSE 79–105; RESP 12–24
[2016-03-30] MEDS: ACETAMINOPHEN 1000MG/100ML IV 100 ML IVPB SCH ×4 (06:01→23:54)
[2016-03-30] MEDS: metroNIDAZOLE 500 MG/NS (PMX) 100 ML IVPB SCH ×3 (06:02→20:54)
[2016-03-30] MEDS: PANTOPRAZOLE (EC) 40 MG TAB PO SCH (06:02)
[2016-03-30] MEDS: IBUPROFEN 600 MG TAB PO PRN ×3 (06:02→19:44)
[2016-03-30] MEDS: CIPROFLOXACIN 400MG/D5W 200 ML IVPB SCH ×2 (08:13→22:26)
--- NOTE | 2016-03-30 09:08 | PN ---
Date/Time of Note Date/Time of Note DATE: 03/30/16 TIME: 09:02 Assessment/Plan VTE Prophylaxis VTE Prophylaxis Intervention: SCD's Lines/Catheters IV [facility]ter Type (from [facility]): Peripheral IV Urinary Cath still in place: Yes Reason Cath still needed: other (indicate) Assessment/Plan Chief Complaint/Hosp Course ASSESSMENT AND PLAN: 1. Abdominal pain with distention, status post hemorrhoidectomy. Dr. Bowers has been consulted. Status post anal dilation and fecal disimpaction on 03/28/2016 . Continue IV fluid, pain medication, ciprofloxacin and Flagyl 2. Leukocytosis, likely postoperatively. Improving on ciprofloxacin and Flagyl. 3. Acute anemia, likely secondary to rectal bleed from hemorrhoids/blood loss anemia, status post transfusion of 2 units of packed red blood cell, follow up CBC this a.m. will transfuse 1 unit of packed red blood cells if hemoglobin is less than 7.5 4. For deep venous thrombosis prophylaxis, on sequential compression devices. 5. For gastrointestinal prophylaxis, on proton pump inhibitor. Transferred to telemetry We will continue to monitor the patient closely. Further recommendations, management and treatment as per clinical course. Problems: Subjective 24 Hr Interval Summary Free Text/Dictation No new episodes of lower GI bleed Denies of any chest pain or shortness of breath Denies any abdominal discomfort Exam/Review of Systems Vital Signs Vitals Vital Signs Date Time Temp Pulse Resp B/P Pulse Ox O2 Delivery O2 Flow Rate FiO2 03/30/16 08:22 86 03/30/16 08:00 98.3 14 91/75 99 Room Air 03/29/16 15:00 2.0 Intake and Output 03/29/16 03/29/16 03/30/16 15:00 23:00 07:00 Intake Total 1850 ml 1600 ml 2050 ml Output Total 230 ml 690 ml 270 ml Balance 1620 ml 910 ml 1780 ml Exam General: The patient is well-developed, Not in acute distress. HEENT: Atraumatic, normocephalic. The pupils are equal and round . Neck: Supple with full range of motion. Chest: Normal expansion of the thorax during inspiration Lungs: Clear to auscultation bilaterally Heart: Normal S1-S2, Regular rhythm and rate. Abdomen: Soft , nontender, nondistended , bowel sounds are present. Extremities: Normal to inspection, no edema no cyanosis Neurologic: Normal mental status,The patient is awake, alert and oriented . Genitourinary/rectal: No evidence of bleeding, rectal exam was deferred Results Result Diagram: 03/29/16 1650 03/29/16 0540 Results 24 hrs Laboratory Tests Test 03/29/16 16:50 Hematocrit 24.0 #L Hemoglobin 7.8 #L Medications Medications Current Medications Sodium Chloride 1,000 ml @ 100 mls/hr Q10H IV Last administered on 03/29/16 21:58; Admin Dose 100 MLS/HR; Start 03/27/16 at 22:30 Acetaminophen (Ofirmev 1000mg/ 100ml Iv) 100 ml @ 400 mls/hr Q6H IVPB Last administered on 03/30/16 06:01; Admin Dose 400 MLS/HR; Start 03/28/16 at 00:00 Hydrocortisone (Hydrocortisone 1% Cr) 1 applic BID PRN TOP RECTAL BURNING Last administered on 03/29/16 21:19; Admin Dose 1 APPLIC; Start 03/28/16 at 05:00 Ondansetron HCl (Zofran Inj) 4 mg Q6H PRN IV NAUSEA AND/OR VOMITING Last administered on 03/29/16 16:39; Admin Dose 4 MG; Start 03/28/16 at 14:30 Docusate Sodium (Colace) 100 mg Q12H PRN PO CONSTIPATION; Start 03/28/16 at 14: 30 Bisacodyl (Dulcolax) 5 mg DAILY PRN PO CONSTIPATION; Start 03/28/16 at 14:30 Pantoprazole 40 mg 40 mg DAILY@06 PO Last administered on 03/30/16 06:02; Admin Dose 40 MG; Start 03/29/16 at 06:00 Ciprofloxacin/ Dextrose 200 ml @ 200 mls/hr Q12 IVPB Last administered on 03/30 08:13; Admin Dose 200 MLS/HR; Start 03/28/16 at 15:30 Metronidazole (Flagyl 500 Mg (Pmx)) 100 ml @ 100 mls/hr Q8 IVPB Last administered on 03/30/16 06:02; Admin Dose 100 MLS/HR; Start 03/28/16 at 15:30 Ibuprofen (Motrin) 600 mg Q6H PRN PO PAIN LEVEL 1-5 Last administered on 06:02; Admin Dose 600 MG; Start 03/28/16 at 19:30 Morphine Sulfate (morphine) 2 mg Q4H PRN IV pain 5-10 Last administered on 03/29 20:58; Admin Dose 2 MG; Start 03/29/16 at 21:00 OBED LOPEZ MD Mar 30, 2016 09:08
[2016-03-30 10:05] LABS: BASOPHILS % 0.3 % (0.0-2.0); EOSINOPHILS # 0.2 10^3/ul (0.0-0.5); EOSINOPHILS % 3.2 % (0.0-7.0); HEMATOCRIT 26.3 % (42.0-52.0); HEMOGLOBIN 8.8 g/dl (14.0-18.0); MEAN CORPUSCULAR HEMOGLOBIN 27.2 pg (29.0-33.0); MEAN CORPUSCULAR HGB CONC 33.4 g/dl (32.0-37.0); MEAN CORPUSCULAR VOLUME 81.6 fl (82.0-101.0); MEAN PLATELET VOLUME 7.6 fl (7.4-10.4); MONOCYTE # 0.7 10^3/ul (0.3-0.9); MONOCYTES % 10.2 % (0.0-11.0); NEUTROPHIL # 4.8 10^3/ul (1.6-7.5); NEUTROPHILS % 71.3 % (39.0-77.0); PLATELET COUNT 160 10^3/UL (140-440); RED BLOOD COUNT 3.23 10^6/ul (4.70-6.10); RED CELL DISTRIBUTION WIDTH 15.9 % (11.5-14.5); UNCORRECTED WBC 6.7 10^3/ul (4.8-10.8); WHITE BLOOD COUNT 6.7 10^3/ul (4.8-10.8)
[2016-03-30 10:08] LABS: CONDITION 1; LH ANALYZER COMMENTS 1
[2016-03-30 10:17] LABS: POTASSIUM 3.7 mmol/L (3.5-5.1)
[2016-03-30 10:19] LABS: CREATININE 0.91 mg/dl (0.61-1.24)
[2016-03-30 10:20] LABS: CALCIUM 7.6 mg/dl (8.4-10.2); MAGNESIUM 1.9 mg/dl (1.7-2.5)
[2016-03-30] MEDS: SOD CHLORIDE 0.9% 1,000 ML IV SCH ×2 (10:30→20:54)
--- NOTE | 2016-03-30 11:03 | PN ---
Date/Time of Note Date/Time of Note DATE: 03/30/16 TIME: 11:02 Assessment/Plan VTE Prophylaxis VTE Prophylaxis Intervention: SCD's Lines/Catheters IV Catheter Type (from [facility]): Peripheral IV Urinary Cath still in place: Yes Reason Cath still needed: urinary retention Assessment/Plan Chief Complaint/Hosp Course s/p eua fecal disimpaction and anal dilation with episode of bleeding in first bowel movement Problems: Assessment/Plan continue monitoring dc home tomorrow if stable Subjective 24 Hr Interval Summary Free Text/Dictation received 3 prbc yesterday, improved, and transferred to tele Exam/Review of Systems Vital Signs Vitals Vital Signs Date Time Temp Pulse Resp B/P Pulse Ox O2 Delivery O2 Flow Rate FiO2 03/30/16 09:30 90 14 111/67 98 03/30/16 08:00 98.3 Room Air 03/29/16 15:00 2.0 Intake and Output 03/29/16 03/29/16 03/30/16 15:00 23:00 07:00 Intake Total 1850 ml 1600 ml 2050 ml Output Total 230 ml 690 ml 270 ml Balance 1620 ml 910 ml 1780 ml Exam abdomen soft, nontender, nondistended Results Result Diagram: 03/29/16 1650 03/29/16 0540 Results 24 hrs Laboratory Tests Test 03/29/16 16:50 03/30/16 09:46 Hematocrit 24.0 #L 26.3 L Hemoglobin 7.8 #L 8.8 L Anion Gap 10 Basophils # 0.0 Basophils % 0.3 Blood Morphology Comment Blood Urea Nitrogen 12 Calcium Level 7.6 L Carbon Dioxide Level 27 Chloride Level 105 Creatinine 0.91 Eosinophils # 0.2 Eosinophils % 3.2 Glucose Level 107 Lymphocytes # 1.0 Lymphocytes % 15.0 Magnesium Level 1.9 Mean Corpuscular Hemoglobin 27.2 L Mean Corpuscular Hemoglobin Concent 33.4 Mean Corpuscular Volume 81.6 L Mean Platelet Volume 7.6 Monocytes # 0.7 Monocytes % 10.2 Neutrophils # 4.8 Neutrophils % 71.3 Nucleated Red Blood Cells # 0.0 Nucleated Red Blood Cells % 0.0 Platelet Count 160 # Potassium Level 3.7 Red Blood Count 3.23 L Red Cell Distribution Width 15.9 H Sodium Level 138 White Blood Count 6.7 # Medications Medications Current Medications Sodium Chloride 1,000 ml @ 100 mls/hr Q10H IV Last administered on 03/29/16 21:58; Admin Dose 100 MLS/HR; Start 03/27/16 at 22:30 Acetaminophen (Ofirmev 1000mg/ 100ml Iv) 100 ml @ 400 mls/hr Q6H IVPB Last administered on 03/30/16 06:01; Admin Dose 400 MLS/HR; Start 03/28/16 at 00:00 Hydrocortisone (Hydrocortisone 1% Cr) 1 applic BID PRN TOP RECTAL BURNING Last administered on 03/29/16 21:19; Admin Dose 1 APPLIC; Start 03/28/16 at 05:00 Ondansetron HCl (Zofran Inj) 4 mg Q6H PRN IV NAUSEA AND/OR VOMITING Last administered on 03/29/16 16:39; Admin Dose 4 MG; Start 03/28/16 at 14:30 Docusate Sodium (Colace) 100 mg Q12H PRN PO CONSTIPATION; Start 03/28/16 at 14: 30 Bisacodyl (Dulcolax) 5 mg DAILY PRN PO CONSTIPATION; Start 03/28/16 at 14:30 Pantoprazole 40 mg 40 mg DAILY@06 PO Last administered on 03/30/16 06:02; Admin Dose 40 MG; Start 03/29/16 at 06:00 Ciprofloxacin/ Dextrose 200 ml @ 200 mls/hr Q12 IVPB Last administered on 03/30 08:13; Admin Dose 200 MLS/HR; Start 03/28/16 at 15:30 Metronidazole (Flagyl 500 Mg (Pmx)) 100 ml @ 100 mls/hr Q8 IVPB Last administered on 03/30/16 06:02; Admin Dose 100 MLS/HR; Start 03/28/16 at 15:30 Ibuprofen (Motrin) 600 mg Q6H PRN PO PAIN LEVEL 1-5 Last administered on 06:02; Admin Dose 600 MG; Start 03/28/16 at 19:30 Morphine Sulfate (morphine) 2 mg Q4H PRN IV pain 5-10 Last administered on 03/29 20:58; Admin Dose 2 MG; Start 03/29/16 at 21:00 Keaton PIZANO Mar 30, 2016 11:03
[2016-03-31 00:06] VITALS: PULSE 79
[2016-03-31] MEDS: IBUPROFEN 600 MG TAB PO PRN ×2 (02:07→10:31)
[2016-03-31 04:06] VITALS: PULSE 67
[2016-03-31 04:23] VITALS: BP 100/46; RESP 20
[2016-03-31] MEDS: metroNIDAZOLE 500 MG/NS (PMX) 100 ML IVPB SCH ×2 (05:28→14:00)
[2016-03-31] MEDS: PANTOPRAZOLE (EC) 40 MG TAB PO SCH (05:28)
[2016-03-31] MEDS: ACETAMINOPHEN 1000MG/100ML IV 100 ML IVPB SCH ×2 (05:28→12:19)
[2016-03-31] MEDS: SOD CHLORIDE 0.9% 1,000 ML IV SCH (05:29)
[2016-03-31 07:45] VITALS: BP 121/59; RESP 18
[2016-03-31 08:01] VITALS: PULSE 79
[2016-03-31] MEDS: CIPROFLOXACIN 400MG/D5W 200 ML IVPB SCH (09:00)
[2016-03-31] MEDS: morphine 2 MG INJ IV PRN ×2 (10:24→10:26)
[2016-03-31 11:01] LABS: BASOPHILS % 0.5 % (0.0-2.0); EOSINOPHILS # 0.3 10^3/ul (0.0-0.5); EOSINOPHILS % 3.7 % (0.0-7.0); HEMATOCRIT 28.6 % (42.0-52.0); HEMOGLOBIN 9.6 g/dl (14.0-18.0); LYMPHOCYTES # 1.3 10^3/ul (0.8-2.9); LYMPHOCYTES % 17.3 % (15.0-51.0); MEAN CORPUSCULAR HEMOGLOBIN 27.1 pg (29.0-33.0); MEAN CORPUSCULAR HGB CONC 33.5 g/dl (32.0-37.0); MEAN CORPUSCULAR VOLUME 80.8 fl (82.0-101.0); MEAN PLATELET VOLUME 7.5 fl (7.4-10.4); MONOCYTE # 0.6 10^3/ul (0.3-0.9); MONOCYTES % 8.2 % (0.0-11.0); NEUTROPHIL # 5.4 10^3/ul (1.6-7.5); NEUTROPHILS % 70.3 % (39.0-77.0); PLATELET COUNT 227 10^3/UL (140-440); RED BLOOD COUNT 3.54 10^6/ul (4.70-6.10); RED CELL DISTRIBUTION WIDTH 16.2 % (11.5-14.5); UNCORRECTED WBC 7.7 10^3/ul (4.8-10.8); WHITE BLOOD COUNT 7.7 10^3/ul (4.8-10.8)
[2016-03-31 11:11] LABS: CONDITION 1; LH ANALYZER COMMENTS 1
[2016-03-31 11:18] LABS: POTASSIUM 3.5 mmol/L (3.5-5.1)
[2016-03-31 11:20] LABS: CREATININE 0.85 mg/dl (0.61-1.24)
[2016-03-31 11:21] LABS: CALCIUM 8.6 mg/dl (8.4-10.2); MAGNESIUM 1.9 mg/dl (1.7-2.5)
[2016-03-31 11:39] VITALS: BP 101/50; RESP 16
--- NOTE | 2016-03-31 12:08 | PN ---
Date/Time of Note Date/Time of Note DATE: 03/31/16 TIME: 12:07 Assessment/Plan VTE Prophylaxis VTE Prophylaxis Intervention: SCD's Lines/Catheters IV Catheter Type (from [facility]): [place] Urinary Cath still in place: No (d/c'd) Assessment/Plan Chief Complaint/Hosp Course s/p eua fecal disimpaction and anal dilation with episode of bleeding in first bowel movement Problems: Assessment/Plan having normal bowel movements tolerating diet dc home and f/u in 3 weeks Subjective 24 Hr Interval Summary Free Text/Dictation doing well, had normal bowel movement with stool Exam/Review of Systems Vital Signs Vitals Vital Signs Date Time Temp Pulse Resp B/P Pulse Ox O2 Delivery O2 Flow Rate FiO2 03/31/16 11:39 97.7 80 16 101/50 99 03/30/16 19:53 Room Air 03/29/16 15:00 2.0 Intake and Output 03/30/16 03/30/16 03/31/16 15:00 23:00 07:00 Intake Total 1140 ml 1100 ml Output Total 400 ml 1550 ml Balance -400 ml -410 ml 1100 ml Exam deferred exam no further rectal bleeding Results Result Diagram: 03/31/16 1017 03/31/16 1017 Results 24 hrs Laboratory Tests Test 03/31/16 10:17 Anion Gap 15 Basophils # 0.0 Basophils % 0.5 Blood Morphology Comment Blood Urea Nitrogen 9 Calcium Level 8.6 Carbon Dioxide Level 28 Chloride Level 103 Creatinine 0.85 Eosinophils # 0.3 Eosinophils % 3.7 Glucose Level 94 Hematocrit 28.6 L Hemoglobin 9.6 L Lymphocytes # 1.3 Lymphocytes % 17.3 Magnesium Level 1.9 Mean Corpuscular Hemoglobin 27.1 L Mean Corpuscular Hemoglobin Concent 33.5 Mean Corpuscular Volume 80.8 L Mean Platelet Volume 7.5 Monocytes # 0.6 Monocytes % 8.2 Neutrophils # 5.4 Neutrophils % 70.3 Nucleated Red Blood Cells # 0.0 Nucleated Red Blood Cells % 0.0 Platelet Count 227 # Potassium Level 3.5 Red Blood Count 3.54 L Red Cell Distribution Width 16.2 H Sodium Level 142 White Blood Count 7.7 Medications Medications Current Medications Sodium Chloride 1,000 ml @ 100 mls/hr Q10H IV Last administered on 03/31/16t 05:29; Admin Dose 100 MLS/HR; Start 03/27/16 at 22:30 Acetaminophen (Ofirmev 1000mg/ 100ml Iv) 100 ml @ 400 mls/hr Q6H IVPB Last administered on 03/31/16 05:28; Admin Dose 400 MLS/HR; Start 03/28/16 at 00:00 Hydrocortisone (Hydrocortisone 1% Cr) 1 applic BID PRN TOP RECTAL BURNING Last administered on 03/29/16 21:19; Admin Dose 1 APPLIC; Start 03/28/16 at 05:00 Ondansetron HCl (Zofran Inj) 4 mg Q6H PRN IV NAUSEA AND/OR VOMITING Last administered on 03/29/16 16:39; Admin Dose 4 MG; Start 03/28/16 at 14:30 Docusate Sodium (Colace) 100 mg Q12H PRN PO CONSTIPATION; Start 03/28/16 at 14: 30 Bisacodyl (Dulcolax) 5 mg DAILY PRN PO CONSTIPATION; Start 03/28/16 at 14:30 Pantoprazole 40 mg 40 mg DAILY@06 PO Last administered on 03/31/16 05:28; Admin Dose 40 MG; Start 03/29/16 at 06:00 Ciprofloxacin/ Dextrose 200 ml @ 200 mls/hr Q12 IVPB Last administered on 03/30 22:26; Admin Dose 200 MLS/HR; Start 03/28/16 at 15:30 Metronidazole (Flagyl 500 Mg (Pmx)) 100 ml @ 100 mls/hr Q8 IVPB Last administered on 03/31/16 05:28; Admin Dose 100 MLS/HR; Start 03/28/16 at 15:30 Ibuprofen (Motrin) 600 mg Q6H PRN PO PAIN LEVEL 1-5 Last administered on 10:31; Admin Dose 600 MG; Start 03/28/16 at 19:30 Morphine Sulfate (morphine) 2 mg Q4H PRN IV pain 5-10 Last administered on 03/29 20:58; Admin Dose 2 MG; Start 03/29/16 at 21:00 Keaton PIZANO Mar 31, 2016 12:08
--- NOTE | 2016-03-31 13:53 | PDOCDIS ---
Discharge Instructions CONDITION Patient Condition: Good HOME CARE INSTRUCTIONS: Special Diet: regular ACTIVITY: Activity Restrictions: Slowly Increase Activity Rest between Activity Avoid heavy lifting FOLLOW UP/APPOINTMENTS Appointments Follow up with General surgery in one week OBED LOPEZ MD Mar 31, 2016 13:53
[2016-03-31] MEDS ORDERED: POLY17PO6 PO (13:56)
[2016-03-31] MEDS ORDERED: BISA5TAB6 PO (13:56)
[2016-03-31] MEDS ORDERED: CIPR500T4 PO (13:56)
[2016-03-31] MEDS ORDERED: METR500T PO (13:56)
[2016-03-31] MEDS ORDERED: PANT40TA4 PO (13:56)
--- NOTE | 2016-04-01 05:20 | DS ---
DATE OF ADMISSION: 03/27/2016 DATE OF DISCHARGE: 03/31/2016 CONSULTANTS: Dr. Bowers, general surgeon. PROCEDURE: Anal dilation and fecal disimpaction. DISCHARGE DIAGNOSES: 1. Normal in stenosis and fecal impaction, status post anal dilation and fecal disimpaction. 2. Abdominal pain with distention, resolved. 3. Status post hemorrhoidectomy. Follow up with general surgeon as outpatient. 4. Acute anemia, status post transfusion. Hemoglobin and hematocrit have been stable. 5. Leukocytosis, resolved. HOSPITAL COURSE: This is a 35-year-old gentleman with past medical history of prematurity at 8 bret hs, choledocholithiasis status post ERCP on 04/03/2014, chronic constipation, large hemorrhoid, stat us post internal and external complex hemorrhoidectomy x2, rigid proctoscopy on 03/24/[address] Se caroline Bowers. The patient was discharged home in stable condition, although he was complaining of having abdominal pain and constipation since surgery. He presented to [facility] Emergency Room on 03/27/2016 having abdominal distention and pain and no bowel movement x5 days status post his hem orrhoidectomy. The patient denies any blood per rectum, melena, or any other discomfort. Dr. Bowers w as consulted from the course in the emergency room, and he recommended admission for impaction. The patient was taken to OR on 03/29/2016 for anal dilation and fecal disimpaction under anesthesia. T he patient tolerated the procedure well and was taken to recovery room, although on the following da y, on 03/29/2016, in the morning, when the patient went to restroom, he had a large bowel movement w hich was accompanied with 1 to 2 pints of blood, and he had a syncopal episode. He was transferred to ICU. He was transfused 2 units of packed red blood cell. He was monitored in ICU for 24 hours d uring which he was awake, alert, oriented. His vitals were stable. He was transferred to telemetry floor in stable condition. This morning, his vitals are temperature 97.7, pulse 80, respirations 1 6, blood pressure 101/50, oxygen 99%. He was continued on IV antibiotics via Cipro and Flagyl. Sec ondarily, he was found to have leukocytosis in the course of the emergency room. His hemoglobin and hematocrit post-transfusion has been improving. Today, his WBC is 7.7, hemoglobin 9.3, hematocrit 28.6, platelets 227, MCV 80.8. Sodium 142, potassium 3.5, chloride 103, bicarbonate 28, BUN 9, crea tinine 0.85, glucose 94, calcium 8.6, magnesium 1.9. At this time, the patient is medically stable to be discharged home. He has been cleared from a surgical standpoint for discharge. We will follo w up with general surgeon as outpatient. MEDICATIONS: 1. Ciprofloxacin 500 mg 1 tab p.o. b.i.d., #8. 2. Flagyl 500 mg 1 tab p.o. t.i.d. 3. Protonix 40 mg 1 tab p.o. daily. 4. MiraLax 17 gram powder p.o. daily p.r.n. 5. Bisacodyl 5 mg 1 tab p.o. daily p.r.n. ALLERGIES: NO KNOWN DRUG ALLERGIES. DISPOSITION: Home. CONDITION: Stable. Total amount of time spent for evaluation of patient and discharge workup: 40 minutes. Dictated By: OBED LOPEZ MD PN/NTS Conf#: [id number] DID#: [id number]
== END 2016-03-31 14:47 | disposition home or self-care (01) | DRG 394 ==
LOC: E/R 16:20 → PP2 19:24 → UNDOADMIN 22:14 → PP2 22:14 → ICU 03-29 08:35 → MS4 03-30 10:44
PROVIDERS: ADMIT Family Medicine; ATTEND Family Medicine
PROC: 30233N1 Transfusion of Nonautologous Red Blood Cells into Peripheral Vein, Percutaneous Approach (ICD-10-PCS; 2016-03-28)
PROC: 0D7Q7ZZ Dilation of Anus, Via Natural or Artificial Opening (ICD-10-PCS; principal; 2016-03-28 17:30)
DX: K62.4 Stenosis of anus and rectum (principal); D62 Acute posthemorrhagic anemia; I10 Essential (primary) hypertension; Z98.890 Other specified postprocedural states; R33.9 Retention of urine, unspecified; D72.829 Elevated white blood cell count, unspecified
CPT/HCPCS: 36415; 36430; 74176; 80048; 80053; 80076; 81003; 82962; 83690; 83735; 84484; 85014; 85018; 85025; 85610; 86850; 86900; 86901; 86920; 87081; 93005; 96361; 96374; 96375; 97162; J0131; J0330; J0690; J0744; J1170; J1885; J2060; J2175; J2270; J2405; J2543; J2710; J7030; J7120; P9016

== ENCOUNTER 2016-04-15 12:09 | Emergency (ER) | payer OTHER ==
[~2016-04-15] VITALS: Wt 79.5 kg
[~2016-04-15 12:09] MED LIST changes: +BISA5TAB6 PO; +CIPR500T4 PO; +METR500T PO; -ONDA-43 PO; +PANT40TA4 PO; +POLY17PO6 PO
--- NOTE | 2016-04-15 14:09 | ERA ---
ER Documentation Chief Complaint Date/Time DATE: 04/15/16 TIME: 14:08 Chief Complaint abdominal pain and distention no bm for 3 days. no n/v HPI The patient is a 35-year-old male, presenting to the ER because of having no bowel movement for the last 3 days, has similar symptoms previously, denies fever, chills, neck pain, chest pain, abdominal pain, vomiting, dysuria, diarrhea. He does not smoke or drink Past medical history: Constipation Past surgical history: Hemorrhoidectomy, cholecystectomy, appendectomy, history of anal dilatation ROS All systems reviewed and are negative except as per history of present illness. Medications Home Meds Active Scripts Polyethylene Glycol* (Miralax*) 17 Gm Powd.pack, 17 GM PO DAILY, #7 Prov:LOUISA GREENBERG MD 04/15/16 Mineral Oil* (Fleet* Mineral Oil Enema) 133 Ml Oil, 133 ML NE DAILY Y for CONSTIPATION, #2 ENEMA Prov:LOUISA GREENBERG MD 04/15/16 Bisacodyl* (Dulcolax*) 5 Mg Tablet.dr, 10 MG NE DAILY Y for CONSTIPATION, #10 TAB Prov:LOUISA GREENBERG MD 04/15/16 Bisacodyl* (Bisacodyl*) 5 Mg Tablet.dr, 5 MG PO DAILY Y for CONSTIPATION, #30 Prov:OBED LOPEZ MD 03/31/16 Pantoprazole* (Pantoprazole*) 40 Mg Tablet., 40 MG PO DAILY@06 for 15 Days Prov:OBED LOPEZ MD 03/31/16 Polyethylene Glycol* (Miralax*) 17 Gm Powd.pack, 17 GM PO DAILY Y for CONSTIPATION, #30 PACKET Prov:OBED LOPEZ MD 03/31/16 Metronidazole* (Flagyl*) 500 Mg Tablet, 500 MG PO TID, #12 TAB Prov:OBED LOPEZ MD 03/31/16 Ciprofloxacin Hcl* (Ciprofloxacin Hcl*) 500 Mg Tablet, 500 MG PO BID, #8 TAB Prov:OBED LOPEZ MD 03/31/16 Allergies Allergies: Coded Allergies: No Known Allergy (Unverified , 03/27/16) PMhx/Soc History of Surgery: Yes (Hemorheidectomy(03/24/16)Gallbladder removed,2 yrs ago, appendectomy 2004) Anesthesia Reaction: No Hx Neurological Disorder: No Hx Respiratory Disorders: No Hx Cardiac Disorders: No Hx Psychiatric Problems: No Hx Miscellaneous Medical Probl: Yes (open heart, hemorrhoidectomy) Hx Alcohol Use: No Hx Substance Use: No Hx Tobacco Use: No Physical Exam Vitals Vital Signs Date Time Temp Pulse Resp B/P Pulse Ox O2 Delivery O2 Flow Rate FiO2 04/15/16 18:15 98.3 78 19 138/80 99 04/15/16 12:14 98.2 88 20 130/71 98 Physical Exam Const: No acute distress. Head: Atraumatic. Eyes: Normal Conjunctiva. ENT: Normal External Ears, Nose and Mouth. Neck: Full range of motion. No meningismus. Resp: Clear to auscultation bilaterally. Cardio: Regular rate and rhythm, no murmurs. Abd: Soft, non distended, normal bowel sounds, non tender. Skin: No petechiae or rashes. Back: No midline or flank tenderness. Ext: No cyanosis, or edema. Neur: Awake and alert. No focal deficit Psych: Normal Mood and Affect. Result Diagram: 04/15/16 1428 04/15/16 1428 Results 24 hrs Laboratory Tests Test 04/15/16 14:28 04/15/16 15:58 Alanine Aminotransferase (ALT/SGPT) 60IU/L Albumin 4.1g/dl Albumin/Globulin Ratio 1.13 Alkaline Phosphatase 129IU/L Anion Gap 20 Aspartate Amino Transf (AST/SGOT) 41IU/L Basophils # 0.010^3/ul Basophils % 0.3% Blood Urea Nitrogen 11mg/dl Calcium Level 9.9mg/dl Carbon Dioxide Level 29mmol/L Chloride Level 102mmol/L Creatinine 1.20mg/dl Direct Bilirubin 0.00mg/dl Eosinophils # 0.110^3/ul Eosinophils % 1.5% Globulin 3.60g/dl Glucose Level 92mg/dl Hematocrit 33.2% Hemoglobin 11.0g/dl Indirect Bilirubin 0.3mg/dl Lipase 29U/L Lymphocytes # 1.710^3/ul Lymphocytes % 26.1% Mean Corpuscular Hemoglobin 25.9pg Mean Corpuscular Hemoglobin Concent 33.1g/dl Mean Corpuscular Volume 78.3fl Mean Platelet Volume 9.1fl Monocytes # 0.710^3/ul Monocytes % 9.9% Neutrophils # 4.110^3/ul Neutrophils % 62.0% Nucleated Red Blood Cells # 0.010^3/ul Nucleated Red Blood Cells % 0.0/100WBC Platelet Count 53143^3/UL Potassium Level 4.6mmol/L Red Blood Count 4.2410^6/ul Red Cell Distribution Width 15.9% Sodium Level 146mmol/L Total Bilirubin 0.3mg/dl Total Protein 7.7g/dl White Blood Count 6.610^3/ul Bedside Urine Blood Negative Bedside Urine Glucose (UA) Negative Bedside Urine Ketones (LAB) Negative Bedside Urine Leukocyte Esterase (L Negative Bedside Urine Nitrite (LAB) Negative Bedside Urine Protein (LAB) 1+ Bedside Urine pH (LAB) 5.5 Current Medications Medications (Trade) Dose Ordered Sig/Maria Elena Route PRN Reason Start Time Stop Time Status Last Admin Dose Admin Bisacodyl (Dulcolax Supp) 10 mg ONCE ONCE NE 04/15/16 14:30 04/15/16 14:31 DC Sodium Biphosphate/ Sodium Phosphate (Fleet Enema) 133 ml ONCE ONCE NE 04/15/16 14:30 04/15/16 14:31 DC Acetaminophen (Tylenol Tab) 1,000 mg ONCE STAT PO 04/15/16 15:12 04/15/16 15:13 DC 04/15/16 15:19 Ibuprofen (Motrin) 800 mg ONCE ONCE PO 04/15/16 15:30 04/15/16 15:31 DC 04/15/16 15:19 Barium Sulfate (Readi-Cat 2 ( [employer] )) 450 ml ONCE ONCE PO 04/15/16 16:30 04/15/16 16:31 DC 04/15/16 16:40 Procedures/[place] [id number] Radiology Main Line: [phone] DIAGNOSTIC IMAGING REPORT Patient: LANIE GONZALEZ : 1980 Age: 35 Sex: M MR #: [id number] DOS: 04/15/16 1616 Ordering MD: LOUISA GREENBERG MD Location: [facility] Room/Bed: PROCEDURE: CT abdomen and pelvis without IV contrast. CLINICAL INDICATION: Abdominal pain TECHNIQUE: CT scan of the abdomen and pelvis without contrast was performed on the [employer] volumetric [address] scanner. The patient was scanned without intravenous contrast. Coronal and sagittal reformatted images were obtained from the axial source images. The CTDI vol is 9.66 mGy and the DLP is 525.66 mGy -cm. COMPARISON: 03/27/2016 FINDINGS: CT abdomen: The lung bases are clear. The heart size is mildly enlarged and is without pericardial thickening or effusion. The liver is normal in size and density and is without focal mass or intrahepatic biliary dilatation. The spleen is normal in size and homogeneous in density. The stomach is grossly unremarkable. The pancreas as visualized is normal. The gallbladder is again noted to have been removed. No common bile duct dilatation is seen. The adrenal glands are symmetric and normal. The kidneys are symmetrically unremarkable as well. No renal calculus or obstructive uropathy or mass lesion is seen. The aorta is of normal in caliber. There is no retroperitoneal lymphadenopathy. The kat hepatis region is clear. Significant stool in the rectosigmoid region is seen. The small and large bowel and mesentery, as visualized, are otherwise unremarkable. No inflammatory changes in the periappendiceal region is seen. CT pelvis: The previously noted extraperitoneal air in the perineum has resolved. A previous noted air in the presacral space has resolved. Increased soft tissue density in the presacral space is seen which is mild in extent. The pelvic sidewalls and inguinal regions are clear. No pelvic mass, lymphadenopathy, or free fluid is seen. No acute inflammation is seen. The urinary bladder is within normal limits. The surrounding osseous structures are unremarkable. No osteolytic or osteoblastic lesion is detected. IMPRESSION: 1. Resolution of the previously noted intraperitoneal air in the presacral space as well as in the perineum. 2. Mild increased presacral soft tissue density which is nonspecific. 3. Stool filled rectosigmoid region. 4. Otherwise, no acute pathology in the abdomen and pelvis. RPTAT: HPNM Physician Radha Date Time Electronically viewed and signed by Physician Radha on 04/15/2016 19 :06 / CC: LOUISA GREENBERG MD MEDICAL MAKING DECISION: The patient is a 35-year-old male, presenting with constipation. His abdominal exam is benign. I have ordered a Dulcolax suppository follow-up with Fleet enema, however he declined. Risks, benefits, alternatives were explained to the patient. Risks include but not limited to and permanent disability Consultation: I discussed the patient with his general surgeon who recommended CT scan of the abdomen with oral contrast Departure Diagnosis: Primary Impression: Constipation Condition: Good Comments I discussed the patient with the general surgeon Dr Bowers was made aware of the lab, the treatment, the CT of scan finding, he agreed to discharge the patient He was discharged with MiraLAX, Dulcolax suppository, Fleet enema I discussed the findings with the patient. I advised the patient to follow-up with Dr Bowers in the morning, and return if any concern. The patient's blood pressure was elevated (>120/80) but appears stable without evhe primary physicianidence of hypertension emergency or urgency. The patient was counseled about the risks of hypertension and urged to pursue outpatient monitoring and therapy within a week with their primary care physician. LOUISA GREENBERG MD Apr 15, 2016 14:09
[2016-04-15] MEDS ORDERED: BISACODYL 10 MG SUPP PR ONE (14:30)
[2016-04-15] MEDS ORDERED: NA PHOSPHATE/BIPHOS 133 ML ENEMA PR ONE (14:30)
[2016-04-15 14:57] LABS: ADD SCAN DIFF NO
[2016-04-15] MEDS ORDERED: ACETAMINOPHEN 500 MG TAB PO STA (15:12)
[2016-04-15 15:16] LABS: BASOPHILS % 0.3 % (0.0-2.0); EOSINOPHILS # 0.1 10^3/ul (0.0-0.5); EOSINOPHILS % 1.5 % (0.0-7.0); HEMATOCRIT 33.2 % (42.0-52.0); LYMPHOCYTES # 1.7 10^3/ul (0.8-2.9); LYMPHOCYTES % 26.1 % (15.0-51.0); MEAN CORPUSCULAR HEMOGLOBIN 25.9 pg (29.0-33.0); MEAN CORPUSCULAR HGB CONC 33.1 g/dl (32.0-37.0); MEAN CORPUSCULAR VOLUME 78.3 fl (82.0-101.0); MEAN PLATELET VOLUME 9.1 fl (7.4-10.4); MONOCYTE # 0.7 10^3/ul (0.3-0.9); MONOCYTES % 9.9 % (0.0-11.0); NEUTROPHIL # 4.1 10^3/ul (1.6-7.5); PLATELET COUNT 464 10^3/UL (140-415); RED BLOOD COUNT 4.24 10^6/ul (4.70-6.10); RED CELL DISTRIBUTION WIDTH 15.9 % (11.5-14.5); WHITE BLOOD COUNT 6.6 10^3/ul (4.8-10.8)
[2016-04-15] MEDS ORDERED: IBUPROFEN 800 MG TAB PO ONE (15:30)
[2016-04-15 15:34] LABS: ALBUMIN 4.1 g/dl (3.3-4.9)
[2016-04-15 15:35] LABS: POTASSIUM 4.6 mmol/L (3.5-5.1)
[2016-04-15 15:37] LABS: ALBUMIN/GLOBULIN RATIO 1.13; BILIRUBIN,INDIRECT 0.3 mg/dl (0-1.1); BILIRUBIN,TOTAL 0.3 mg/dl (0.2-1.3); CREATININE 1.2 mg/dl (0.61-1.24); TOTAL PROTEIN 7.7 g/dl (6.1-8.1)
[2016-04-15 15:38] LABS: CALCIUM 9.9 mg/dl (8.4-10.2)
[2016-04-15 15:56] LABS: URINE BLOOD (Dip) POC Negative (NEGATIVE)
[2016-04-15] MEDS ORDERED: BARIUM SULF 2% 450 ML BTL (BERRY SMOOTHIE) PO ONE (16:30)
[2016-04-15 18:15] VITALS: BP 138/80; PULSE 78; RESP 19; TEMP 98.3
--- NOTE | 2016-04-15 19:06 | RADRPT ---
PROCEDURE: CT abdomen and pelvis without IV contrast. CLINICAL INDICATION: Abdominal pain TECHNIQUE: CT scan of the abdomen and pelvis without contrast was performed on the [employer] volumetric [address] scanner. The patient was scanned without intravenous contrast. Coronal and sagittal refo rmatted images were obtained from the axial source images. The CTDI vol is 9.66 mGy and the DLP is 5 25.66 mGy-cm. COMPARISON: 03/27/2016 FINDINGS: CT abdomen: The lung bases are clear. The heart size is mildly enlarged and is without pericardial thickening o r effusion. The liver is normal in size and density and is without focal mass or intrahepatic biliary dilatation . The spleen is normal in size and homogeneous in density. The stomach is grossly unremarkable. T he pancreas as visualized is normal. The gallbladder is again noted to have been removed. No commo n bile duct dilatation is seen. The adrenal glands are symmetric and normal. The kidneys are symmet rically unremarkable as well. No renal calculus or obstructive uropathy or mass lesion is seen. The aorta is of normal in caliber. There is no retroperitoneal lymphadenopathy. The kat hepatis region is clear. Significant stool in the rectosigmoid region is seen. The small and large bowel a nd mesentery, as visualized, are otherwise unremarkable. No inflammatory changes in the periappendic eal region is seen. CT pelvis: The previously noted extraperitoneal air in the perineum has resolved. A previous noted air in the p resacral space has resolved. Increased soft tissue density in the presacral space is seen which is mild in extent. The pelvic sidewalls and inguinal regions are clear. No pelvic mass, lymphadenopat hy, or free fluid is seen. No acute inflammation is seen. The urinary bladder is within normal [place] its. The surrounding osseous structures are unremarkable. No osteolytic or osteoblastic lesion is detect ed. IMPRESSION: 1. Resolution of the previously noted intraperitoneal air in the presacral space as well as in the perineum. 2. Mild increased presacral soft tissue density which is nonspecific. 3. Stool filled rectosigmoid region. 4. Otherwise, no acute pathology in the abdomen and pelvis. RPTAT: HPNM oJse Casanova, Physician Date Time Electronically viewed and signed by Jose Casanova, Physician on 04/15/2016 19:06 /
[2016-04-15] MEDS ORDERED: BISA-57 PR (19:48)
[2016-04-15] MEDS ORDERED: FLEETOIL PR (19:49)
[2016-04-15] MEDS ORDERED: POLY17PO6 PO (19:50)
== END 2016-04-15 20:00 | disposition home or self-care (01) ==
LOC: FTE 12:09
DX: K59.00 Constipation, unspecified (principal)
CPT/HCPCS: 36415; 74176; 80053; 81003; 83690; 85025; Z7502; Z7610

== ENCOUNTER 2016-04-16 12:02 | Observation (INO) | payer OTHER ==
[~2016-04-16] VITALS: Ht 170.2 cm; Wt 79.3 kg
[2016-04-16] VITALS (18 sets, daily range): BP systolic 107–144; BP diastolic 56–89; PULSE 54–68; RESP 14–18; Ht 170.2 cm; Wt 79.3 kg
[~2016-04-16 12:02] MED LIST changes: +BISA-57 PR; +CEFAZOLIN 1 GM INJ ONE; +FLEETOIL PR; +GLYCOPYRROLATE 0.4 MG INJ ONE; +LIDOCAINE 2% (SDV) 5 ML INJ ONE; +NEOSTIGMINE 3 MG/3 ML SYRINGE ONE; +PROPOFOL 200 MG INJ ONE; +ROCURONIUM 50 MG INJ ONE; +SUCCINYLCHOLINE CHLORIDE 100 MG/5 ML SYG IV ONE
[2016-04-16] MEDS ORDERED: SOD CHLORIDE 0.9% 1,000 ML IV STA (12:10)
[2016-04-16 12:47] LABS: ADD SCAN DIFF NO
[2016-04-16 12:52] LABS: BASOPHILS % 0.5 % (0.0-2.0); EOSINOPHILS # 0.1 10^3/ul (0.0-0.5); EOSINOPHILS % 1.7 % (0.0-7.0); HEMATOCRIT 34.3 % (42.0-52.0); HEMOGLOBIN 11.4 g/dl (14.0-18.0); LYMPHOCYTES # 1.6 10^3/ul (0.8-2.9); LYMPHOCYTES % 25.7 % (15.0-51.0); MEAN CORPUSCULAR HEMOGLOBIN 25.6 pg (29.0-33.0); MEAN CORPUSCULAR HGB CONC 33.2 g/dl (32.0-37.0); MEAN CORPUSCULAR VOLUME 77.1 fl (82.0-101.0); MEAN PLATELET VOLUME 9.3 fl (7.4-10.4); MONOCYTE # 0.6 10^3/ul (0.3-0.9); MONOCYTES % 9.1 % (0.0-11.0); NEUTROPHIL # 3.8 10^3/ul (1.6-7.5); NEUTROPHILS % 62.7 % (39.0-77.0); PLATELET COUNT 478 10^3/UL (140-415); RED BLOOD COUNT 4.45 10^6/ul (4.70-6.10); RED CELL DISTRIBUTION WIDTH 15.7 % (11.5-14.5)
[2016-04-16 13:00] LABS: INR 0.96; PARTIAL THROMBOPLASTIN TIME 30.6 Sec (25.0-35.0); PROTIME 12.8 Sec (12.2-14.2)
[2016-04-16] MEDS ORDERED: ONDANSETRON 4 MG INJ IV PRN (13:00)
--- NOTE | 2016-04-16 13:07 | ERA ---
ER Documentation Chief Complaint Date/Time DATE: 04/16/16 TIME: 13:04 Chief Complaint 4 DAYS WITH CONSTIPATION HPI This is a very pleasant 35-year-old male with past medical history of hemorrhoidectomy performed by the surgeon Dr. Bowers roughly 2 weeks prior to arrival. The patient indicates that for the past 4 days he has not been able have a bowel movement. He is taking analgesic medication which includes Motrin and Tylenol. Indicates he was seen and evaluated yesterday in the emergency department underwent a CT scan which showed fecal impaction. He was instructed that if he had not had a bowel movement by noon p.m. today to return to the emergency department to be further evaluated. He states he had minimal abdominal distention but denies no abdominal pain. He has had no fevers or shaking or chills. He denies any hemoptysis hematemesis or melanotic stools. ROS All systems reviewed and are negative except as per history of present illness. Medications Home Meds Discontinued Scripts Polyethylene Glycol* (Miralax*) 17 Gm Powd.pack, 17 GM PO DAILY, #7 Prov:LOUISA GREENBERG MD 04/15/16 Mineral Oil* (Fleet* Mineral Oil Enema) 133 Ml Oil, 133 ML [place] DAILY Y for CONSTIPATION, #2 ENEMA Prov:LOUISA GREENBERG MD 04/15/16 Bisacodyl* (Dulcolax*) 5 Mg Tablet., 10 MG TX DAILY Y for CONSTIPATION, #10 TAB Prov:LOUISA GREENBERG MD 04/15/16 Bisacodyl* (Bisacodyl*) 5 Mg Tablet., 5 MG PO DAILY Y for CONSTIPATION, #30 Prov:OBED LOPEZ MD 03/31/16 Pantoprazole* (Pantoprazole*) 40 Mg Tablet., 40 MG PO DAILY@06 for 15 Days Prov:OBED LOPEZ MD 03/31/16 Polyethylene Glycol* (Miralax*) 17 Gm Powd.pack, 17 GM PO DAILY Y for CONSTIPATION, #30 PACKET Prov:OBED LOPEZ MD 03/31/16 Metronidazole* (Flagyl*) 500 Mg Tablet, 500 MG PO TID, #12 TAB Prov:OBED LOPEZ MD 03/31/16 Ciprofloxacin Hcl* (Ciprofloxacin Hcl*) 500 Mg Tablet, 500 MG PO BID, #8 TAB Prov:OBED LOPEZ MD 03/31/16 Allergies Allergies: Coded Allergies: No Known Allergy (Unverified , 04/16/16) PMhx/Soc History of Surgery: Yes (Hemorheidectomy(03/24/16)Gallbladder removed,2 yrs ago, appendectomy 2004) Anesthesia Reaction: No Hx Neurological Disorder: No Hx Respiratory Disorders: No Hx Cardiac Disorders: No Hx Psychiatric Problems: No Hx Miscellaneous Medical Probl: Yes (open heart, hemorrhoidectomy) Hx Alcohol Use: No Hx Substance Use: No Hx Tobacco Use: No Smoking Status: Never smoker Physical Exam Vitals Vital Signs Date Time Temp Pulse Resp B/P Pulse Ox O2 Delivery O2 Flow Rate FiO2 04/16/16 12:04 97.9 103 18 108/69 96 Physical Exam Constitutional:Well-developed. Well-nourished. HEENT:Normocephalic. Atraumatic.Pupils were equal round reactive to light. Moist mucous membranes.No tonsillar exudates. Respiratory: Not using accessory muscles of respiration.Lungs were clear to auscultation bilaterally. No rhonchi. No rales. No wheezing. Cardiovascular: Regular rate regular rhythm.No murmurs. No rubs were appreciated.S1, S2 normal. Distal pulses are palpable 2+ bilaterally. GI: Abdomen was soft. Nontender. Non Distended. No pulsatile abdominal masses or bruits. No rebound. No guarding. Bowel sounds were present and normal. Muscle skeletal: Full range of motion of both the upper and lower extremities bilaterally.Normal muscle tone.No assymetrical calf tenderness or swelling. NEURO: Patient was alert, awake, orientated x3.No facial droop. Gait observed and normal with no ataxia.Speech had regular rate and rhythm. No focal neurological deficits. Result Diagram: 04/16/16 1230 Results 24 hrs Laboratory Tests Test 04/16/16 12:30 Activated Partial Thromboplast Time 30.6Sec Basophils # 0.010^3/ul Basophils % 0.5% Eosinophils # 0.110^3/ul Eosinophils % 1.7% Hematocrit 34.3% Hemoglobin 11.4g/dl INR International Normalized Ratio 0.96 Lymphocytes # 1.610^3/ul Lymphocytes % 25.7% Mean Corpuscular Hemoglobin 25.6pg Mean Corpuscular Hemoglobin Concent 33.2g/dl Mean Corpuscular Volume 77.1fl Mean Platelet Volume 9.3fl Monocytes # 0.610^3/ul Monocytes % 9.1% Neutrophils # 3.810^3/ul Neutrophils % 62.7% Nucleated Red Blood Cells # 0.010^3/ul Nucleated Red Blood Cells % 0.0/100WBC Platelet Count 69306^3/UL Prothrombin Time 12.8Sec Prothrombin Time Ratio 1.0 Red Blood Count 4.4510^6/ul Red Cell Distribution Width 15.7% White Blood Count 6.010^3/ul Current Medications Medications (Trade) Dose Ordered Sig/Maria Elena Route PRN Reason Start Time Stop Time Status Last Admin Dose Admin Sodium Chloride (NS) 1,000 ml @ 1,000 mls/hr Q1H STAT IV 04/16/16 12:10 04/16/16 13:09 04/16/16 12:34 Ondansetron HCl (Zofran Inj) 4 mg BRIDGE ORDER PRN IV NAUSEA AND/OR VOMITING 04/16/16 13:00 04/17/16 12:59 Procedures/MDM This patient was seen and evaluated by myself and IV access was established by nursing staff. Patient no electrolyte abnormalities. His surgeon Dr. Bowers kindly called and stated that he will take the patient to the OR to undergo an emergent fecal disimpaction. The patient will be admitted to the physician Dr. Montenegro for further management upon admission. Departure Diagnosis: Primary Impression: Constipation Qualified Code: K59.00 - Constipation, unspecified constipation type Condition: Serious CRISTO HARPER Apr 16, 2016 13:07
[2016-04-16 13:09] LABS: ALBUMIN 3.9 g/dl (3.3-4.9); POTASSIUM 4.4 mmol/L (3.5-5.1)
[2016-04-16 13:11] LABS: CREATININE 1.43 mg/dl (0.61-1.24)
[2016-04-16 13:12] LABS: ALBUMIN/GLOBULIN RATIO 0.92; BILIRUBIN,INDIRECT 0.5 mg/dl (0-1.1); BILIRUBIN,TOTAL 0.5 mg/dl (0.2-1.3); CALCIUM 9.9 mg/dl (8.4-10.2); TOTAL PROTEIN 8.1 g/dl (6.1-8.1)
[2016-04-16] MEDS ORDERED: HYDROmorphONE 1 MG/ML SYG IV STA (13:26)
[2016-04-16] MEDS ORDERED: LIDOCAINE 2% JELLY 30 ML TOP SCH (14:00)
--- NOTE | 2016-04-16 15:23 | CONS ---
DATE OF ADMISSION: 04/16/2016 DATE OF CONSULTATION: 04/16/2016 HISTORY OF PRESENT ILLNESS: This is a 35-year-old male who has a history of chronic constipation wh o has been suffering under constipation for many years, underwent hemorrhoidectomy, and had recurren t constipation and anal stenosis. He was taken initially to the OR and dilated and disimpacted. He presents again for disimpaction. He has not been taking his stool softeners consistently and has n ot been following an aggressive bowel regimen. PAST MEDICAL HISTORY AND PAST SURGICAL HISTORY: He has a history of hemorrhoidectomy and anal dilat ion and disimpaction x1. ALLERGIES: NO KNOWN DRUG ALLERGIES. PHYSICAL EXAMINATION: VITAL SIGNS: Temperature is 97.7, pulse is 77, respiratory rate is 19, blood pressure is 108/69. GENERAL: No acute distress. CARDIOVASCULAR: Regular rate and rhythm. LUNGS: Clear to auscultation. ABDOMEN: Distended, no peritoneal signs. No rebound tenderness. RECTAL: Shows stool with stool impaction. LABORATORY DATA: White blood cell count is 6.0, hemoglobin is 11.4, hematocrit is 34.3, and platele t count is 478. Chemistry: Sodium is 144, potassium is 4.4, chloride is 102, carbon dioxide is 28, BUN is 13, creatinine is 1.4, glucose is 125. ASSESSMENT AND PLAN: This is a 35-year-old male with fecal impaction. He will go to OR for manual fecal disimpaction and anal dilatation. Dictated By: SOPHY CANTRELL/SIMRAN Conf#: [id number] DID#: [id number]
[2016-04-16] MEDS ORDERED: LIDOCAINE 2% (MDV) 20 ML INJ ONE (15:54)
[2016-04-16] MEDS ORDERED: BUPIVACAINE 0.25% (MPF) 30 ML INJ ONE (15:54)
[2016-04-16] MEDS ORDERED: FENTAnyl 50 MCG/ML VIAL ONE (16:13)
[2016-04-16] MEDS ORDERED: DIPHENHYDRAMINE 50 MG INJ IV PRN (17:00)
[2016-04-16] MEDS ORDERED: HYDROCODONE/APAP (5/325) TAB PO PRN (17:00)
[2016-04-16] MEDS ORDERED: FENTAnyl 50 MCG/ML VIAL IV PRN (17:00)
[2016-04-16] MEDS ORDERED: MEPERIDINE 25 MG INJ IV PRN (17:00)
[2016-04-16] MEDS ORDERED: HYDROmorphONE (0.2 MG/ML) 10ML SYG IV PRN ×3 (17:00)
[2016-04-16] MEDS ORDERED: morphine 2 MG INJ IV PRN (17:00)
--- NOTE | 2016-04-16 17:29 | OPR ---
DATE OF OPERATION: 04/16/2016 INDICATION: This is a 35-year-old male with a history of being a preemie and colonic inertia. He p resents with anal stenosis and fecal impaction. He taken to the OR for anal dilation and fecal disi mpaction. PREOPERATIVE DIAGNOSIS: Anal stenosis. POSTOPERATIVE DIAGNOSIS: Anal stenosis. POSTOPERATIVE DIAGNOSIS: Anal dilation and fecal disimpaction. SURGEON: Neville Bowers MD SPECIMEN: None. COMPLICATIONS: None. ANESTHESIA: General. DESCRIPTION OF PROCEDURE: The patient was taken to the OR and prepped and draped in the usual ster ile fashion. Surgical timeout was performed. IV antibiotics were given. Patient is examined under anesthesia. There appears to be some stenosis which dilated with manipulation of the anus. Additi onally, there was a fecal impaction, which was disimpacted manually. There is a minimal amount of b leeding. This area was also anesthetized with local anesthesia. Dry dressings were applied. Dictated By: NEVILLE BOWERS MD SB/SIMRAN Conf#: [id number] DID#: [id number]
--- NOTE | 2016-04-16 18:32 | HP ---
DATE OF ADMISSION: 04/16/2016 HISTORY OF PRESENT ILLNESS: The patient is a 35-year-old gentleman with a history of chronic consti pation and history of hemorrhoids status post hemorrhoidectomy by Dr. Bowers and history of choledochol ithiasis status post ERCP. The patient came to the ER with recurrent constipation and anal stenosis . He recently was admitted for anal stenosis and fecal impaction and was taken to OR, underwent ora dilatation and fecal disimpaction by Dr. Bowers; however, returned to ER today with a complaint of co nstipation. The patient reported that he has not had any bowel movement for the last 4 days. The p atient was taking Motrin and Tylenol for pain control. The patient did come to the ER on 04/15/2016 and was prescribed Dulcolax suppository and ____ which he refused, and the patient did undergo CT o f the abdomen which revealed stool filled rectosigmoid region. The patient was given prescription f or MiraLax, Dulcolax suppository and Fleet enema and was supposed to follow up with Dr. Bowers in the [facility]; however, the patient returned to ER with similar symptoms and was seen by Dr. Bowers and was ta oz to OR and underwent fecal disimpaction and anal dilatation. No reported fever or chills, no rep orted rectal bleed, no report of any focal weakness. No reported chest pain, shortness of breath, l eg pain or leg edema. The patient did have mild abdominal discomfort, but there was no vomiting. PAST MEDICAL HISTORY: As stated above. ALLERGIES: None. FAMILY HISTORY: Noncontributory. SOCIAL HISTORY: No smoking, no alcohol. PHYSICAL EXAMINATION: GENERAL: The patient is conscious, awake, alert, fairly oriented. VITAL SIGNS: Temperature 98.3, pulse 71, respirations 18, blood pressure 110/56, O2 saturation 100% on room air. HEENT: Atraumatic, normocephalic. Conjunctivae and lids normal. Oropharynx clear. NECK: Supple. No mass, no thyromegaly. LUNGS: Clear to auscultation. CARDIOVASCULAR: S1, S2 normal, no murmur. ABDOMEN: Soft, nondistended, nontender. EXTREMITIES: No leg edema. NEUROLOGIC: The patient is awake, alert, fairly oriented with no gross focal deficit. LABORATORY DATA: WBC 6, hemoglobin 11.4, platelets 478. Chemistries: Sodium 144, potassium 4.4, B UN 13, creatinine 1.4, glucose 125. Liver enzymes normal. IMPRESSION: 1. Recurrent fecal impaction and anal stenosis status post fecal disimpaction and anal dilatation. 2. Mild acute kidney injury. 3. History of hemorrhoidectomy. 4. History of choledocholithiasis status post endoscopic retrograde cholangiopancreatography. PLAN: The patient admitted on medical floor. Patient will be started on IV fluid and will be given IV Flagyl. In addition, the patient will be given IV morphine for pain control, IV Zofran for naus ea, vomiting and will be started on MiraLax twice a day. Further recommendations will depend on the patient's hospital course. We will do followup basic metabolic panel tomorrow. Will use SCD for D VT prophylaxis. The patient was encouraged to use a stool softener and laxative upon discharge to a void frequent episodes of constipation. Dictated By: LUZMARIA BLOCK/SIMRAN Conf#: [id number] DID#: [id number]
[2016-04-16] MEDS: LACTATED RINGER'S 1,000 ML IV SCH (20:00)
[2016-04-16 20:31] LABS: ADD SCAN DIFF NO
[2016-04-16 20:35] LABS: BASOPHILS % 0.2 % (0.0-2.0); EOSINOPHILS # 0.1 10^3/ul (0.0-0.5); EOSINOPHILS % 0.5 % (0.0-7.0); HEMATOCRIT 34.3 % (42.0-52.0); HEMOGLOBIN 11.4 g/dl (14.0-18.0); LYMPHOCYTES # 1.6 10^3/ul (0.8-2.9); LYMPHOCYTES % 13.6 % (15.0-51.0); MEAN CORPUSCULAR HEMOGLOBIN 26.2 pg (29.0-33.0); MEAN CORPUSCULAR HGB CONC 33.2 g/dl (32.0-37.0); MEAN CORPUSCULAR VOLUME 78.9 fl (82.0-101.0); MEAN PLATELET VOLUME 9.2 fl (7.4-10.4); MONOCYTE # 0.8 10^3/ul (0.3-0.9); MONOCYTES % 6.9 % (0.0-11.0); NEUTROPHIL # 9.3 10^3/ul (1.6-7.5); NEUTROPHILS % 78.6 % (39.0-77.0); PLATELET COUNT 464 10^3/UL (140-415); RED BLOOD COUNT 4.35 10^6/ul (4.70-6.10); RED CELL DISTRIBUTION WIDTH 15.5 % (11.5-14.5); WHITE BLOOD COUNT 11.8 10^3/ul (4.8-10.8)
[2016-04-16 20:48] LABS: POTASSIUM 4.2 mmol/L (3.5-5.1)
[2016-04-16 20:50] LABS: BILIRUBIN,INDIRECT 0.2 mg/dl (0-1.1); BILIRUBIN,TOTAL 0.2 mg/dl (0.2-1.3); CREATININE 1.2 mg/dl (0.61-1.24)
[2016-04-16 20:51] LABS: ALBUMIN/GLOBULIN RATIO 1.02; TOTAL PROTEIN 7.9 g/dl (6.1-8.1)
[2016-04-16 20:52] LABS: CALCIUM 9.5 mg/dl (8.4-10.2)
[2016-04-16] MEDS ORDERED: HYDROmorphONE 1 MG/ML SYG IV PRN (21:00)
[2016-04-16] MEDS: metroNIDAZOLE 500 MG/NS (PMX) 100 ML IVPB SCH (21:20)
[2016-04-16] MEDS: POLYETHYLENE GLYCOL 17 GM PACKET PO SCH (21:20)
[2016-04-17] MEDS ORDERED: IBUPROFEN 600 MG TAB PO ONE (01:30)
[2016-04-17] MEDS ORDERED: ACETAMINOPHEN 500 MG TAB PO ONE (01:30)
[2016-04-17] MEDS: LACTATED RINGER'S 1,000 ML IV SCH ×2 (05:20→09:12)
[2016-04-17 05:31] LABS: ADD SCAN DIFF NO
[2016-04-17] MEDS: metroNIDAZOLE 500 MG/NS (PMX) 100 ML IVPB SCH (05:33)
[2016-04-17 05:37] LABS: BASOPHILS % 0.3 % (0.0-2.0); EOSINOPHILS # 0.1 10^3/ul (0.0-0.5); EOSINOPHILS % 0.9 % (0.0-7.0); HEMOGLOBIN 10.1 g/dl (14.0-18.0); LYMPHOCYTES # 1.7 10^3/ul (0.8-2.9); LYMPHOCYTES % 17.4 % (15.0-51.0); MEAN CORPUSCULAR HEMOGLOBIN 26.4 pg (29.0-33.0); MEAN CORPUSCULAR HGB CONC 33.7 g/dl (32.0-37.0); MEAN CORPUSCULAR VOLUME 78.3 fl (82.0-101.0); MEAN PLATELET VOLUME 9.3 fl (7.4-10.4); MONOCYTE # 0.8 10^3/ul (0.3-0.9); MONOCYTES % 8.2 % (0.0-11.0); NEUTROPHIL # 7.3 10^3/ul (1.6-7.5); PLATELET COUNT 369 10^3/UL (140-415); RED BLOOD COUNT 3.83 10^6/ul (4.70-6.10); RED CELL DISTRIBUTION WIDTH 15.6 % (11.5-14.5)
[2016-04-17 05:50] LABS: ALBUMIN 3.5 g/dl (3.3-4.9)
[2016-04-17 05:51] LABS: POTASSIUM 4.5 mmol/L (3.5-5.1)
[2016-04-17 05:53] LABS: BILIRUBIN,INDIRECT 0.5 mg/dl (0-1.1); BILIRUBIN,TOTAL 0.5 mg/dl (0.2-1.3); CREATININE 1.03 mg/dl (0.61-1.24)
[2016-04-17 05:54] LABS: CALCIUM 9.1 mg/dl (8.4-10.2)
[2016-04-17 08:01] VITALS: BP 113/55; RESP 16
--- NOTE | 2016-04-17 08:25 | PN ---
Date/Time of Note Date/Time of Note DATE: 04/17/16 TIME: 08:21 Assessment/Plan VTE Prophylaxis VTE Prophylaxis Intervention: SCD's Lines/Catheters IV Catheter Type (from Nrsg): Peripheral IV Assessment/Plan Chief Complaint/Hosp Course s/p anal dilation and fecal disimpaction Problems: Assessment/Plan dc home today Subjective 24 Hr Interval Summary Free Text/Dictation had a bm overnight, some pain issues Exam/Review of Systems Vital Signs Vitals Vital Signs Date Time Temp Pulse Resp B/P Pulse Ox O2 Delivery O2 Flow Rate FiO2 04/17/16 08:01 98.5 89 16 113/55 95 04/16/16 18:27 Nasal Cannula 2.0 Intake and Output 04/16/16 04/16/16 04/17/16 15:00 23:00 07:00 Intake Total 100 ml 1000 ml Output Total 400 ml Balance 100 ml 600 ml Exam no issues Results Result Diagram: 04/17/16 0511 04/17/16 0511 Results 24 hrs Laboratory Tests Test 04/16/16 12:30 04/16/16 20:25 04/17/16 05:11 Activated Partial Thromboplast Time 30.6 Alanine Aminotransferase (ALT/SGPT) 49 48 40 Albumin 3.9 4.0 3.5 Albumin/Globulin Ratio 0.92 1.02 1.00 Alkaline Phosphatase 117 120 99 Anion Gap 18 H 20 H 16 Aspartate Amino Transf (AST/SGOT) 34 30 25 Basophils # 0.0 0.0 0.0 Basophils % 0.5 0.2 0.3 Blood Urea Nitrogen 13 11 10 Calcium Level 9.9 9.5 9.1 Carbon Dioxide Level 28 27 31 Chloride Level 102 102 103 Creatinine 1.43 H 1.20 1.03 Direct Bilirubin 0.00 0.00 0.00 Eosinophils # 0.1 0.1 0.1 Eosinophils % 1.7 0.5 0.9 Globulin 4.20 H 3.90 H 3.50 H Glucose Level 125 103 92 Hematocrit 34.3 L 34.3 L 30.0 L Hemoglobin 11.4 L 11.4 L 10.1 L INR International Normalized Ratio 0.96 Indirect Bilirubin 0.5 0.2 0.5 Lymphocytes # 1.6 1.6 1.7 Lymphocytes % 25.7 13.6 L 17.4 Mean Corpuscular Hemoglobin 25.6 L 26.2 L 26.4 L Mean Corpuscular Hemoglobin Concent 33.2 33.2 33.7 Mean Corpuscular Volume 77.1 L 78.9 L 78.3 L Mean Platelet Volume 9.3 9.2 9.3 Monocytes # 0.6 0.8 0.8 Monocytes % 9.1 6.9 8.2 Neutrophils # 3.8 9.3 H 7.3 Neutrophils % 62.7 78.6 H 73.0 Nucleated Red Blood Cells # 0.0 0.0 0.0 Nucleated Red Blood Cells % 0.0 0.0 0.0 Platelet Count 478 H 464 H 369 # Potassium Level 4.4 4.2 4.5 Prothrombin Time 12.8 Prothrombin Time Ratio 1.0 Red Blood Count 4.45 L 4.35 L 3.83 L Red Cell Distribution Width 15.7 H 15.5 H 15.6 H Sodium Level 144 145 H 145 H Total Bilirubin 0.5 0.2 0.5 Total Protein 8.1 7.9 7.0 White Blood Count 6.0 11.8 #H 10.0 Medications Medications Current Medications Lidocaine 1 applic 1 applic ONCE TOP Last administered on 04/16/16 14:00; Admin Dose 1 APPLIC; Start 04/16/16 at 14:00 Metronidazole (Flagyl 500 Mg (Pmx)) 100 ml @ 100 mls/hr Q8 IVPB Last administered on 04/17/16 05:33; Admin Dose 100 MLS/HR; Start 04/16/16 at 22:00 Acetaminophen/ Hydrocodone Bitart 1 tab 1 tab Q6H PRN PO PAIN LEVEL 6-10; Start 04/16/16 at 17:00 Lactated Ringer's (Lr) 1,000 ml @ 100 mls/hr Q10H IV Last administered on 20:00; Admin Dose 100 MLS/HR; Start 04/16/16 at 16:57 Polyethylene Glycol (Miralax) 17 gm BID PO Last administered on 04/16/16 21:20 ; Admin Dose 17 GM; Start 04/16/16 at 21:00 Hydromorphone HCl (Dilaudid) 1 mg Q3H PRN IV PAIN Last administered on 21:18; Admin Dose 1 MG; Start 04/16/16 at 21:00 Acetaminophen (Tylenol Tab) 650 mg Q4H PRN PO PAIN AND OR ELEVATED TEMP; Start 04/17/16 at 08:30 Ibuprofen (Motrin) 600 mg Q6H PRN PO MODERATE PAIN LEVEL 4-6; Start 04/17/16 at 08:30 Keaton PIZANO Apr 17, 2016 08:24
[2016-04-17] MEDS ORDERED: IBUPROFEN 600 MG TAB PO PRN (08:30)
[2016-04-17] MEDS ORDERED: ACETAMINOPHEN 325 MG TAB PO PRN (08:30)
[2016-04-17] MEDS: POLYETHYLENE GLYCOL 17 GM PACKET PO SCH (09:00)
[2016-04-17] MEDS ORDERED: METR500T14 PO (13:41)
[2016-04-17] MEDS ORDERED: IBUP-1542 PO (13:41)
[2016-04-17] MEDS ORDERED: POLY17PO6 PO (13:44)
[2016-04-17] MEDS ORDERED: ACET325T33 PO (13:44)
--- NOTE | 2016-04-17 13:45 | DS ---
Date/Time of Note Date/Time of Note DATE: 04/17/16 TIME: 13:45 Discharge Summary Admission/Discharge Info Admit Date/Time Apr 16, 2016 at 12:54 Discharge Date/Time Patient Condition: Stable Hospital Course s/p anal dilation and fecal disimpaction Home Meds Active Scripts Polyethylene Glycol* (Miralax*) 17 Gm Powd.pack, 17 GM PO BID for 28 Days Prov:GILMER GARCIA 04/17/16 Acetaminophen* (Tylenol*) 325 Mg Tablet, 650 MG PO Q4H Y for PAIN AND OR ELEVATED TEMP, #30 TAB Prov:GILMER GARCIA 04/17/16 Metronidazole (Flagyl) 500 Mg Tab, 500 MG PO Q8 for 7 Days, TAB Prov:GILMER GARCIA 04/17/16 Ibuprofen* (Ibuprofen*) 600 Mg Tablet, 600 MG PO Q6H Y for MODERATE PAIN LEVEL 4 -6, #30 TAB Prov:GILMER GARCIA 04/17/16 Discontinued Scripts Polyethylene Glycol* (Miralax*) 17 Gm Powd.pack, 17 GM PO DAILY, #7 Prov:LOUISA GREENBERG MD 04/15/16 Mineral Oil* (Fleet* Mineral Oil Enema) 133 Ml Oil, 133 ML AR DAILY Y for CONSTIPATION, #2 ENEMA Prov:LOUISA GREENBERG MD 04/15/16 Bisacodyl* (Dulcolax*) 5 Mg Tablet., 10 MG AR DAILY Y for CONSTIPATION, #10 TAB Prov:LOUISA GREENBERG MD 04/15/16 Bisacodyl* (Bisacodyl*) 5 Mg Tablet., 5 MG PO DAILY Y for CONSTIPATION, #30 Prov:OBED LOPEZ MD 03/31/16 Pantoprazole* (Pantoprazole*) 40 Mg Tablet., 40 MG PO DAILY@06 for 15 Days Prov:OBED LOPEZ MD 03/31/16 Polyethylene Glycol* (Miralax*) 17 Gm Powd.pack, 17 GM PO DAILY Y for CONSTIPATION, #30 PACKET Prov:OBED LOPEZ MD 03/31/16 Metronidazole* (Flagyl*) 500 Mg Tablet, 500 MG PO TID, #12 TAB Prov:OBED LOPEZ MD 03/31/16 Ciprofloxacin Hcl* (Ciprofloxacin Hcl*) 500 Mg Tablet, 500 MG PO BID, #8 TAB Prov:OBED LOPEZ MD 03/31/16 Pending Labs Laboratory Tests Test 04/16/16 20:25 04/17/16 05:11 Alanine Aminotransferase (ALT/SGPT) 48IU/L (13-69) 40IU/L (13-69) Albumin 4.0g/dl (3.3-4.9) 3.5g/dl (3.3-4.9) Albumin/Globulin Ratio 1.02 1.00 Alkaline Phosphatase 120IU/L (42-121) 99IU/L (42-121) Anion Gap 20 (8-16) 16 (8-16) Aspartate Amino Transf (AST/SGOT) 30IU/L (15-46) 25IU/L (15-46) Basophils # 0.010^3/ul (0.0-0.1) 0.010^3/ul (0.0-0.1) Basophils % 0.2% (0.0-2.0) 0.3% (0.0-2.0) Blood Urea Nitrogen 11mg/dl (7-20) 10mg/dl (7-20) Calcium Level 9.5mg/dl (8.4-10.2) 9.1mg/dl (8.4-10.2) Carbon Dioxide Level 27mmol/L (21-31) 31mmol/L (21-31) Chloride Level 102mmol/L (97-110) 103mmol/L (97-110) Creatinine 1.20mg/dl (0.61-1.24) 1.03mg/dl (0.61-1.24) Direct Bilirubin 0.00mg/dl (0.00-0.20) 0.00mg/dl (0.00-0.20) Eosinophils # 0.110^3/ul (0.0-0.5) 0.110^3/ul (0.0-0.5) Eosinophils % 0.5% (0.0-7.0) 0.9% (0.0-7.0) Globulin 3.90g/dl (1.3-3.2) 3.50g/dl (1.3-3.2) Glucose Level 103mg/dl (70-220) 92mg/dl (70-220) Hematocrit 34.3% (42.0-52.0) 30.0% (42.0-52.0) Hemoglobin 11.4g/dl (14.0-18.0) 10.1g/dl (14.0-18.0) Indirect Bilirubin 0.2mg/dl (0-1.1) 0.5mg/dl (0-1.1) Lymphocytes # 1.610^3/ul (0.8-2.9) 1.710^3/ul (0.8-2.9) Lymphocytes % 13.6% (15.0-51.0) 17.4% (15.0-51.0) Mean Corpuscular Hemoglobin 26.2pg (29.0-33.0) 26.4pg (29.0-33.0) Mean Corpuscular Hemoglobin Concent 33.2g/dl (32.0-37.0) 33.7g/dl (32.0-37.0) Mean Corpuscular Volume 78.9fl (82.0-101.0) 78.3fl (82.0-101.0) Mean Platelet Volume 9.2fl (7.4-10.4) 9.3fl (7.4-10.4) Monocytes # 0.810^3/ul (0.3-0.9) 0.810^3/ul (0.3-0.9) Monocytes % 6.9% (0.0-11.0) 8.2% (0.0-11.0) Neutrophils # 9.310^3/ul (1.6-7.5) 7.310^3/ul (1.6-7.5) Neutrophils % 78.6% (39.0-77.0) 73.0% (39.0-77.0) Nucleated Red Blood Cells # 0.010^3/ul (0.0-0.0) 0.010^3/ul (0.0-0.0) Nucleated Red Blood Cells % 0.0/100WBC (0.0-0.0) 0.0/100WBC (0.0-0.0) Platelet Count 50140^3/UL (140-415) 89925^3/UL (140-415) Potassium Level 4.2mmol/L (3.5-5.1) 4.5mmol/L (3.5-5.1) Red Blood Count 4.3510^6/ul (4.70-6.10) 3.8310^6/ul (4.70-6.10) Red Cell Distribution Width 15.5% (11.5-14.5) 15.6% (11.5-14.5) Sodium Level 145mmol/L (135-144) 145mmol/L (135-144) Total Bilirubin 0.2mg/dl (0.2-1.3) 0.5mg/dl (0.2-1.3) Total Protein 7.9g/dl (6.1-8.1) 7.0g/dl (6.1-8.1) White Blood Count 11.810^3/ul (4.8-10.8) 10.010^3/ul (4.8-10.8) GILMER GARCIA Apr 17, 2016 13:45
--- NOTE | 2016-04-17 13:53 | PDOCDIS ---
Discharge Instructions CONDITION Patient Condition: Stable HOME CARE INSTRUCTIONS: Diet Instructions: Regular ACTIVITY: Activity Restrictions: Slowly Increase Activity Rest between Activity Avoid heavy lifting Avoid Heavy Housework Bathing Restrictions: Shower FOLLOW UP/APPOINTMENTS Appointments FU WITH Primary MD X WEEK FU with Dr PIZANO as recommended- in 3 weeks per patient FU with Dr GUZMAN- Dr Davis office no. provided be staff Patient verbalized understading discharge instructions. Call 911 or got to the nearest hospital if symptoms worsen Dw Dr Chavez/staff/patient. GILMER GARCIA Apr 17, 2016 13:53
== END 2016-04-17 14:19 | disposition home or self-care (01) ==
LOC: E/R 12:02 → MS2 12:54
PROVIDERS: ADMIT Internal Medicine; ATTEND Internal Medicine
DX: K56.41 Fecal impaction (principal); K62.4 Stenosis of anus and rectum
CPT/HCPCS: 36415; 45905; 80053; 85025; 85610; 85730; 96361; 96365; 96374; 96375; J0330; J0690; J1170; J1200; J2270; J2710; J3010; J7030; J7120; Z7500; Z7502; Z7512; Z7610; A4310; G0378